=== PATIENT | female | born 1950 | race Caucasian/White ===

== ENCOUNTER 2018-02-11 10:30 | Outpatient (RCR) | payer MEDICARE, OTHER, SELFPAY ==
--- NOTE | 2017-12-06 09:33 | HP.PTEVAL ---
Patient's Visit Information LENA STOUT is a 67 year old F referred to Physical Therapy by ALECIA PERSON with a diagnosis of Knee Scope 10/06/17. Date of Evaluation: 12/06/17 Physical Therapist: Lisa Burch - Visit Plan Frequency: 2x /Week Duration: 4 Weeks Plan: Focus on LE and core s/s - Subjective Subjective: Surgery 10/06/17- knee scope- cleaned out the backers cyst and meniscus. MD seemed to think it would be a breeze but the patient doesn't think that. Pain is located on the lateral aspect of the knee and radiates to the foot. But the whole knee is also sore and tender. Has OA in her back and has had a hip replacement in the right side. Does feel the surgery helped- the back of the knee pain comes and goes. Describes the past dull and and achy or sharp/shooting. when she over works it- it gets worst. Worst:8/10 Agg: increased movement. Eases: getting off of it but if she sits to long it stiffens up. Tries to move it when she is sitting. 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 Gas pedal foot- when the seat hits the back of her leg is very painful. back pain: OA. Has not had therapy on her back- Hip replacement was 2013. No N/T in the toes. Sleep: not disturbed- gets up 2-3x a night to go the bathroom. PMHx: Acid reflux, thyroid. Meds: omeprazol, and thyroid medication. - Objective Posture: FH, RS. Gait: antalgic- hip drop, decreased stance on the right LE- reports she has walked like this since her hip replacement 4 years ago. Palpation: tender along lateral joint line, ITBand, fibular head and posterior knee. ROM: 0-120 degrees. Strength: Ankle: 5/5, Knee: 4+/5, Hip: 4/5 throughout Core: fair minus - Goals Goal 1:: Patient will be I with HEP and progression Goal Time Frame: 4-6 Weeks Goal 2:: Patient will maintain proper posture t/o tx session to demo increased core s/s. Goal Time Frame: 4-6 Weeks Goal 3:: Patient will ambulate >300 feet with a normalized gait pattern Goal Time Frame: 4-6 Weeks Goal 4:: Patient will demo 5/5 strength in LE Goal Time Frame: 4-6 Weeks - Rehabilitation Potential Physical Therapy Diagnosis: Patient presents with hypomobility- she has decreased strength and muscular endurance s/p knee scope. Rehabilitation Potential: Good - Anticipated Interventions Patient/Client Instruction: Educate patient on: Benefits of Fitness Program For the Purpose of:: To improve performance and independence with ADL's Therapeutic Exercise to Include: Strength training, Endurance training, Balance training, Agility training, Body mechanics, Postural training, Flexibilty training, Gait and locomotor training, Dynamic Lumbar Stabilization For the Purpose of:: To improve performance and independence with ADL's Thank you for the opportunity to evaluate your patient. For Medicare and Medicare HMO plans, please review the plan of care and approve it. It will need to be FAXED BACK to us at [phone] for Medicare purposes. Please let me know if there are questions or concerns regarding this plan of care. Physician Signature: Date:
--- NOTE | 2018-01-13 11:20 | HP.PTREVAL_ITS ---
JADE YUSUF KAITLYN It has been my pleasure to treat LENA STOUT over the last 9 visits for Knee Scope 10/06/17. Please see the progress note below for an update on the physical therapy plan of care! Subjective: Patient reports that she is a lot better- reports less pain and therapy has made enough of a difference she asked to continue therapy for another 4 weeks. The pain in the back is gone and the other is almost gone. She can go up recip but coming down is still one at time. Pain is located on the lateral aspect of the knee. Still gets stiff at night and she has to maneuver to get comfortable. Feels that she is 75% better. Just wants to get over that last hump. Objective/Function: Posture: FH, RS. Gait: mild deviation- decreased stance on the left LE- mild hip drop. Stairs: asc.desc 8' recip with 2 HR. hr/TR: able with pain tr. ROM: 5-115 degrees. Strength: 4+/5 throughout Plan Plan: Continue 2x a week for 4 weeks- Goals Goal 1:: Patient will be I with HEP and progression Goal Time Frame: 4-6 Weeks Goal Progress: Progressing Goal 2:: Patient will maintain proper posture t/o tx session to demo increased core s/s. Goal Time Frame: 4-6 Weeks Goal Progress: Progressing Goal 3:: Patient will ambulate >300 feet with a normalized gait pattern Goal Time Frame: 4-6 Weeks Goal Progress: Progressing Goal 4:: Patient will demo 5/5 strength in LE Goal Time Frame: 4-6 Weeks Goal Progress: Progressing Anticipated Interventions Patient/Client Instruction: Educate patient on: Benefits of Fitness Program For the Purpose of:: To improve performance and independence with ADL's Therapeutic Exercise to Include: Strength training, Endurance training, Balance training, Agility training, Body mechanics, Postural training, Flexibilty training, Gait and locomotor training, Dynamic Lumbar Stabilization For the Purpose of:: To improve performance and independence with ADL's Please do not hesitate to contact me at [phone] by phone or Fax: if you have questions or concerns regarding this new plan of care! Sincerely, Lisa Burch
--- NOTE | 2018-02-11 10:50 | HP.PTDCSUM ---
HP - PT D/C Summary It has been my pleasure to treat LENA STOUT under orders from ALECIA HANSEN, for the diagnosis of Knee Scope 10/06/17 for a total of 17 visit(s). Discharge Date: Please see the following information for a summary of their discharge status. - Subjective Subjective: Patient reports overall its better but still has a lot of soreness- comes and goes- worst 5/10. stopping on the bus break. - Pain Right Knee Pain Intensity (Out of 10): 3 - Overall Improvement % Improvement: 80 - Objective Objective/Function: Posture: FH, RS. Gait: mild deviation- decreased stance on the left LE- mild hip drop. Stairs: asc.desc 8' recip with 2 HR. hr/TR: able. ROM: 5-115 degrees. Strength: 4+/5 throughout - Goals Goal 1:: Patient will be I with HEP and progression Goal Progress: Goal Met Goal 2:: Patient will maintain proper posture t/o tx session to demo increased core s/s. Goal Progress: Progressing Goal 3:: Patient will ambulate >300 feet with a normalized gait pattern Goal Progress: Progressing Goal 4:: Patient will demo 5/5 strength in LE Goal Progress: Goal Met - Plan Plan: Discharge to I HEP. - D/C Information If there are questions or concerns regarding this patient's physical therapy, please feel free to call me at [phone]. Thank you for the referral of this patient. Sincerely, Lisa Burch
== END 2018-02-11 19:00 | disposition home or self-care (01) ==
LOC: PT 10:30
PROVIDERS: Family Provider Family Medicine; PCP Family Medicine
DX: Z98.890 Other specified postprocedural states (principal)
CPT/HCPCS: 97110; 97161; 97164; 97530

== ENCOUNTER 2019-05-10 09:15 | Outpatient (RCR) | payer MEDICARE, OTHER, SELFPAY ==
[2019-04-25 14:23] VITALS: BP 148/79; PULSE 74; RESP 16; TEMP 37; BMI 37.8
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
[2019-05-03 09:40] VITALS: BP 118/73; PULSE 76; RESP 18; TEMP 35.7; BMI 37.8
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
[2019-05-10 09:21] VITALS: BP 150/86; PULSE 60; RESP 18; TEMP 36.2; BMI 37.8
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
== END 2019-05-10 23:59 ==
LOC: WC 09:15
PROVIDERS: Family Provider Family Medicine; PCP Family Medicine; Referring Provider Family Medicine; Visit Provider Nurse Practitioner Family
DX: L02.31 Cutaneous abscess of buttock (principal); L98.411 Non-pressure chronic ulcer of buttock limited to breakdown of skin
CPT/HCPCS: 11042; 99213; G0463

== ENCOUNTER 2019-06-07 09:15 | Outpatient (RCR) | payer MEDICARE, OTHER, SELFPAY ==
[2019-05-11 01:14] VITALS: BP 150/86; PULSE 60; RESP 18; TEMP 36.2
[2019-05-24 08:15] VITALS: BP 147/77; PULSE 77; RESP 16; TEMP 20.8; BMI 37.8
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
[2019-05-31 09:15] VITALS: BP 141/71; PULSE 81; RESP 16; TEMP 35.5; BMI 37.8
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
[2019-06-07 09:18] VITALS: BP 164/95; PULSE 66; RESP 16; TEMP 35.5; BMI 37.8
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
== END 2019-06-10 23:59 ==
LOC: WC 09:15
PROVIDERS: Family Provider Family Medicine; PCP Family Medicine; Referring Provider Family Medicine; Visit Provider Nurse Practitioner Family
DX: L02.31 Cutaneous abscess of buttock (principal); L98.411 Non-pressure chronic ulcer of buttock limited to breakdown of skin
CPT/HCPCS: 11042; 99213; G0463

== ENCOUNTER 2020-12-29 22:43 | Emergency (ER) | payer MEDICARE, OTHER, SELFPAY ==
[2020-12-29 22:44] VITALS: PULSE 67; RESP 20; TEMP 36.3; O2SAT 97; BMI 41.9
[2020-12-29 22:49] VITALS: BP 169/86
--- NOTE | 2020-12-29 22:49 | EKG12_ITS ---
Test Reason : ABD PAIN Blood Pressure : / mmHG Vent. Rate : 057 BPM Atrial Rate : 057 BPM P-R Int : 144 ms QRS Dur : 078 ms QT Int : 424 ms P-R-T Axes : 047 000 021 degrees QTc Int : 412 ms Sinus bradycardia Moderate voltage criteria for LVH, may be normal variant Borderline ECG Confirmed by SHALONDA MORGAN, MONO ([id number]), editor sound SONJA STACY ([id number]) on 12/31/2020 9:04:20 AM Referred By: HEBER Confirmed By:MONO LIZ MD
--- NOTE | 2020-12-29 22:51 | ED.VIS.GEN ---
History of Present Illness Chief Complaint: Abd Pain Informant: Patient Onset: Today Context: Sudden Onset Timing: Continuous Current Severity: Moderate Maximum Severity: Moderate Narrative: The patient presents to the emergency department with left flank pain into her left lower quadrant. She states that symptoms began rather acutely tonight. She states that about 3 weeks ago, she did have similar symptoms but they were on the right side. This happened 2 days after her Covid shot. She states that she received her second Covid vaccination 3 days ago. She denies fever. She is mildly nauseated without vomiting. She denies dysuria. She denies chest pain or dyspnea. The patient states she is otherwise been in her normal state of health. She denies any rash or trauma. Prior similar symptoms: Yes Recent Illness/Hospitalization: No Past Medical History - Allergies and Home Meds Allergies/Adverse Reactions: Allergies acetaminophen [From Vicodin] Allergy (Verified 12/29/20 22:46) Other hydrocodone [From Vicodin] Allergy (Verified 12/29/20 22:46) Other tramadol Allergy (Verified 12/29/20 22:46) Other Primary Care Physician: Ebony Esqueda MD [STAFF PHYSICIAN] - As soon as possible Prior records reviewed: Yes Past Medical History: - - Hypothyroid Surgical History: noncontributory Smoking Status: Never smoker Review of Systems General: Denies: Chills, Fever, Sweats Eyes: Denies: Visual changes - bilaterally, Diplopia ENT: Denies: Rhinorrhea, Sore throat Cardiovascular: Denies: Chest pain, Palpitations Respiratory: Denies: Dyspnea, Cough, Dyspnea on exertion Gastrointestinal: Reports: Abdominal pain. Denies: Nausea, Vomiting, Diarrhea, Melena, Hematochezia Genitourinary: Denies: Dysuria, Hematuria, Frequency Musculoskeletal: Reports: Back pain. Denies: Extremity Pain Skin: Denies: Rash, Wounds Neurological: Denies: Headache, Weakness, Numbness Physical Exam Vital Signs/Narrative: Vital Signs Temp Pulse Resp BP Pulse Ox 12/29/20 22:49 169/86 H 12/29/20 22:44 97.3 F L 67 20 H 97 Inital Vital Signs reviewed: Yes General: Well nourished, Well developed, No Acute Distress Head: Normocephalic, Atraumatic Eyes: Perrl, EOMI ENT: Moist mucous membranes, No rhinorrhea Neck: Supple, Nontender Cardiovascular: Regular rate, Regular rhythm, No murmurs Respiratory: No distress, CTA bilaterally, Chest nontender Abdomen: Soft, Nontender, Nondistended, Normal bowel sounds Back: Nontender, Normal Inspection Extremities: Nontender, No edema Skin: Normal color, No rash Neurological: Alert, Oriented x3, Cranial nerves II-XII grossly intact, Normal Strength, Normal Sensation Psychological: Normal affect, Normal Mood Diagnostic/Tx/Re-eval Clinical Impression(s) from Imaging Studies Abdomen/Pelvis CT 12/29/20 23:34 IMPRESSION: Mild left hydronephrosis secondary to a 5 mm x 4 mm mid ureteral stone. Fluid-filled prominent loop of ileum right lower quadrant. Recommend continued follow-up. A closed loop obstruction is a consideration. Minimal colonic diverticulosis. Small right inguinal hernia containing fat. Hepatic and left renal cysts which can be correlated with ultrasound. Electronically Signed: Orville Tamez MD at 1:36 EDT , Service support , Abnormal Lab Results 12/29/20 12/29/20 12/29/20 22:55 22:55 23:10 WBC 7.9 RBC 4.12 L Hgb 13.0 Hct 39.3 MCV 95.4 MCH 31.6 MCHC 33.1 RDW Std Deviation 42.2 RDW Coeff of Caitlin 12.2 Plt Count 221 MPV 9.0 Immature Gran % (Auto) 0.800 Neut % (Auto) 55.4 Lymph % (Auto) 32.2 [place] % (Auto) 10.1 H Eos % (Auto) 1.1 Baso % (Auto) 0.4 Absolute Neuts (auto) 4.4 Absolute Lymphs (auto) 2.55 Nucleated RBC % 0 Sodium 140 Potassium 4.1 Chloride 107 Carbon Dioxide 26.0 Anion Gap 7 BUN 24 H Creatinine 1.16 H Estim Creat Clear Calc 36.71 Est GFR (MDRD) Af Amer 60 Est GFR (MDRD) Non-Af 49 L BUN/Creatinine Ratio 20.7 H Glucose 174 H Calcium 8.6 Total Bilirubin 0.30 AST 32 ALT 40 Alkaline Phosphatase 98 Total Protein 7.0 Albumin 3.7 Globulin 3.3 Albumin/Globulin Ratio 1.1 Lipase 181 Urine Color Yellow Urine Clarity Sl Cldy Urine pH 6.0 Ur Specific [place] 1.020 Urine Protein 30 H Urine Glucose (UA) Normal Urine Ketones 5 H Urine Occult Blood 250 H Urine Nitrite Negative Urine Bilirubin Negative Urine Urobilinogen 1 H Ur Leukocyte Esterase 500 H Urine RBC 5-10 SEEN Urine WBC 5-10 SEEN Ur Squamous Epith Cells 0-5 SEEN Urine Bacteria 0 SEEN Urine Mucus 0 SEEN - Medical Decision Making Patient presents with acute onset left-sided flank pain. She also had nausea. Her abdomen is soft and nontender. She denies any history of prior kidney stone. IV was established. Labs were obtained. Labs are relatively unremarkable and at the patient's baseline. Her urine does show some blood, but no evidence of infection. Patient underwent CT imaging. She does have a 5 x 4 mm stone in the mid ureter with some mild hydro-. After analgesics, her pain is controlled. At this point, I do feel that she is safe for outpatient follow-up with urology. She will be prescribed Zofran, Percocet, and Flomax. She has had no fever. Patient was counseled on concerning symptoms and reasons to return. She will be discharged home. Impression 1. Renal colic ED Disposition - Plan for ED Patient: Instructions: ED Kidney Stone w/ Colic Prescriptions: Tamsulosin HCl [Flomax] 0.4 mg PO DAILY #7 capsule Prescription Printed Oxycodone HCl/Acetaminophen [Percocet 5/325] 1 tablet PO Q6H PRN PRN 5 Days #20 tab PRN Reason: Pain/Inflammation Prescription Printed Ondansetron [Zofran Odt] 4 mg PO Q8H PRN PRN #10 tablet PRN Reason: Nausea Prescription Printed Referrals: Ebony Esqueda MD [STAFF PHYSICIAN] - As soon as possible
[2020-12-29] MEDS: 0.9% Normal Saline 1,000 ML 1000 ML IV (23:07)
[2020-12-29] MEDS: Morphine 4 MG/ML Syringe IV ×2 (23:07→23:54)
[2020-12-29] MEDS: Ondansetron 4 MG/2 ML Vial IV (23:07)
[2020-12-29 23:14] LABS: Bacteria 0 SEEN /hpf (None Seen); Mucous, Urine 0 SEEN /hpf (<or=2+)
[2020-12-29 23:16] LABS: Glucose, Dipstick Normal (Normal); Ketone-Dipstick 5 mg/dl (Negative); Leukocyte Esterase-Dipstick 500 /ul (Negative); Nitrite-Dipstick Negative (Negative); Occult Blood-Urine 250 /ul (Negative); Protein-Dipstick 30 mg/dl (Negative); Urine Bilirubin Dipstick Negative (Negative); Urine Urobilinogen 1 mg/dl (Normal)
[2020-12-29 23:21] LABS: Color, Urine Yellow (Yellow); Urine Clarity Sl Cldy (Clear)
[2020-12-29 23:22] LABS: ALB/GLOB Ratio 1.1 RATIO (0.9-2.4); AST(SGOT) 32 U/L (15-37); Alanine Aminotransfer ALT/SGPT 40 U/L (13-56); Albumin, Serum 3.7 g/dL (3.2-5.0); Alkaline Phosphatase 98 U/L (45-117); Anion Gap 7 (5-15); BUN 24 mg/dL (7-18); BUN/Creat Ratio 20.7 RATIO (10-20); Calcium,Total 8.6 mg/dL (8.5-10.1); Chloride 107 mmol/L (98-107); Creatinine, Serum 1.16 mg/dL (0.55-1.02); EST Glomerular Filtration Rate 49 mL/min (>60); Est Glom Filt Rate - Afr Amer 60 mL/min (>60); Estimated Creatinine Clearance 36.71 ml/min; Globulin 3.3 g/dL (2.2-4.2); Glucose 174 mg/dL (74-106); Lipase 181 U/L (73-393); Potassium 4.1 mmol/L (3.5-5.1); Sodium Level 140 mmol/L (136-145)
[2020-12-29 23:22] LABS: Red Blood Cells-Urine 5-10 SEEN /hpf (0-5); Squamous Epithelial Cells - UA 0-5 SEEN /hpf (5-10); White Blood Cells 5-10 SEEN /hpf (0-5)
[2020-12-29 23:23] LABS: Absolute Lymphocyte Count 2.55 X10^3/uL (0.83-4.51); Absolute Neutrophil Count 4.4 X10^3/uL (2.0-7.7); Basophil# 0.03 X10^3/uL; Basophil% 0.4 % (0-1); Eosinophil# 0.09 X10^3/uL; Eosinophils% 1.1 % (0-5); Hematocrit 39.3 % (37-47); Lymphocyte # 2.55 X10^3/ul (4.0); Lymphocyte % 32.2 % (19-41); Mean Corp Hgb Conc 33.1 g/dL (32-36); Mean Corpuscular Hgb 31.6 pg (27.0-32.0); Mean Corpuscular Volume 95.4 fL (81-99); Monocyte% 10.1 % (0-10); NRBC Flagged by Analyzer 0 % (0-5); Neutrophil # 4.39 X10^3/uL (2.7-7.7); Neutrophil % 55.4 % (47-70); Platelet Count 221 K/mm3 (150-450); RBC Distribution Width CV 12.2 % (11.6-14.6); RBC Distribution Width SD 42.2 fl (35.1-43.9); Red Blood Count 4.12 M/mm3 (4.2-5.4); White Blood Count 7.9 K/mm3 (4.4-11.0)
--- NOTE | 2020-12-29 23:34 | CT_ITS ---
STUDY: CT ABDOMEN AND PELVIS WITH AND WITHOUT CONTRAST REASON FOR EXAM: Female, 70 years old. Left lower quadrant pain. Left flank pain. RADIATION DOSAGE (If Supplied By Facility): CTDIvol = ( 18.02 ) mGy, DLP = ( 2777.90 ) mGycm TECHNIQUE: Axial CT images of the abdomen and pelvis were obtained with and without IV contrast administration. 100 mL Isovue 300 intravenous contrast. Multiplanar reconstructions. The protocol utilizes one or more of the following dose reduction techniques: automated exposure control, adjustment of mA and/or kV according to patient size, and/or use of iterative reconstruction technique. Individualized dose optimization techniques were used for this CT. COMPARISON: No relevant priors. FINDINGS: Lower Chest Lungs: Normal. Heart: Normal. Ribs: Normal. Organs / Endocrine Liver: Hepatic cysts the largest left lobe measuring 2.8 cm. Gallbladder / Biliary Tree: Normal. Pancreas: Normal. Spleen: Normal. Adrenal Glands: Normal. Peritoneum Fluid Collections: None. Free Air: No intra-abdominal free air. Intestinal Tract Stomach: Normal. Small Intestine: Fluid-filled loop of small bowel right lower quadrant measuring 2.3 cm in transverse dimension coronal image 66 series 601. Appendix: Normal. Colon: Scattered diverticulosis. Appendix absent compatible with history of appendectomy. Urinary System Kidney (right): Normal. Kidney (left): Mild left hydronephrosis secondary to a 5 mm x 4 mm mid ureteral stone located at approximately L3-L4. 0.9 cm cyst inferior pole left kidney. Ureter (right): Normal. Ureter (left): Normal. Bladder: Normal. Reproductive Organs The uterus grossly normal. No adnexal mass is seen. Vessels Aorta: Normal. Inferior Vena Cava: Normal. Iliac Arteries: Normal. Lymph Nodes Retroperitoneal: Normal. Iliac / Inguinal: 3.0 x 2.2 cm right inguinal hernia containing fat. Mesenteric: Non-visualized. Bones Vertebrae: Minimal anterolisthesis L3 on L4. Pelvis / Sacrum: Total right hip arthroplasty in normal alignment. Abdominal Wall / Inguinal Region Defect: None. Hernia: None. CT/CT Abd/Pelvis W/WO Contrast IMPRESSION: Mild left hydronephrosis secondary to a 5 mm x 4 mm mid ureteral stone. Fluid-filled prominent loop of ileum right lower quadrant. Recommend continued follow-up. A closed loop obstruction is a consideration. Minimal colonic diverticulosis. Small right inguinal hernia containing fat. Hepatic and left renal cysts which can be correlated with ultrasound. Electronically Signed: Orville Tamez MD at 1:36 EDT , Service support ,
[2020-12-30] MEDS: Morphine 4 MG/ML Syringe IV (02:01)
[2020-12-30 02:06] VITALS: BP 132/78; PULSE 87; RESP 18; O2SAT 99
== END 2020-12-30 02:06 | disposition home or self-care (01) ==
LOC: ED 23:27
PROVIDERS: Emergency Provider Emergency Medicine; PCP Family Medicine
DX: N13.2 Hydronephrosis with renal and ureteral calculous obstruction (principal); E03.9 Hypothyroidism, unspecified; Z79.899 Other long term (current) drug therapy
CPT/HCPCS: 74178; 80053; 81001; 83690; 85025; 93005; 96361; 96374; 96375; 96376; 99285; J7030; Q9967; A4216; J2405

== ENCOUNTER 2020-12-31 01:03 | Emergency (ER) | payer MEDICARE, OTHER, SELFPAY ==
[2020-12-31 01:05] VITALS: BP 163/92; PULSE 60; RESP 16; TEMP 36.6; O2SAT 96; BMI 43.1
--- NOTE | 2020-12-31 01:17 | CT_ITS ---
STUDY: CT ABDOMEN AND PELVIS WITH CONTRAST REASON FOR EXAM: Female, 70 years old. Pain RADIATION DOSAGE (If Supplied By Facility): CTDIvol = ( 22.79 ) mGy, DLP = ( 1155.91 ) mGycm TECHNIQUE: Transaxial images were obtained from the dome of the diaphragm to the symphysis pubis without oral contrast. No intravenous was administered. Sagittal and coronal images were reconstructed. Individualized dose optimization techniques were used for this CT. COMPARISON: 12/30/2020. FINDINGS: Mild posterior dependent atelectasis, remainder of the lung bases are clear. The visualized portions of the heart are within normal limits. Multiple low-attenuation structures within the liver, largest seen at the level of the left liver lobe measuring 3.0 x 2.1 cm and most compatible with liver cysts. Gallbladder reveals increased density within the lumen which may represent vicarious excretion of contrast from previous examination. Otherwise gallbladder and biliary system are unremarkable. Normal spleen. Normal pancreas. There is mild symmetric enlargement of the adrenal glands suggesting adrenal hyperplasia. Normal right kidney. Normal left kidney. There is a small hiatal hernia. There is foamy debris with mild distention of the distal small bowel loops, cannot exclude enteritis versus minimal obstruction. There are multiple colonic diverticula consistent with diverticulosis. Nonspecific distention of the right colon and transverse portion of the colon with increased fecal debris. The descending colon is incompletely distended otherwise unremarkable. The appendix is visualized and appears normal. There is diffuse atherosclerotic calcification of the abdominal aorta, without a demonstrated aneurysm. Normal inferior vena cava. Normal retroperitoneum. The urinary bladder is incompletely distended otherwise unremarkable. Anteverted uterus with atrophy. Small bilateral fat-containing inguinal hernias, slightly more prominent on the right compared to the left. Degenerative disease of the spine. Right-sided hip prosthesis with beam hardening artifact contributing to obscuration of surrounding structures. Degenerative disease of bilateral SI joints and left hip. CT/Abdomen/Pelvis without Cont IMPRESSION: Nonspecific distention of the right-sided colon with increased fecal debris. Cannot exclude superimposed enteritis versus no obstruction as described above. No signs of bowel obstruction. Low-attenuation liver lesions, likely cysts as described above. Remainder of abdominal viscera are unremarkable. Mild hiatal hernia. Electronically Signed: Vida Lacy MD at 2:27 EDT , Service support ,
--- NOTE | 2020-12-31 01:18 | ED.VIS.GEN ---
History of Present Illness Chief Complaint: Flank Pain Informant: Patient Narrative: Patient stated she was diagnosed with a 5 mm kidney stone on her left side yesterday. Her pain medicine is not working. She is having pain despite taking 1 Percocet every 6 hours. She also has some nausea. Took Zofran just prior to coming in. She has had no vomiting. Comes in for pain control again. Did have lab work done just yesterday. Passing gas normally. The pain is now in her left abdomen. It was in her left back yesterday. - Past Medical History (1) Abscess of right buttock Status: Chronic Comment: Post abscess ulcer with fat layer exposed ( Superior and Inferior ). 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 Past Medical History - Allergies and Home Meds Allergies/Adverse Reactions: Allergies acetaminophen [From Vicodin] Allergy (Verified 12/31/20 01:05) Other hydrocodone [From Vicodin] Allergy (Verified 12/31/20 01:05) Other tramadol Allergy (Verified 12/31/20 01:05) Other Primary Care Physician: Salinas Vásquez MD [Primary Care Provider] - Prior records reviewed: Yes Past Medical History: - - See problem list, kidney stone Surgical History: noncontributory Smoking Status: Never smoker Alcohol: None Drugs: None Review of Systems General: Denies: Chills, Fever, Sweats Eyes: Denies: Visual changes - bilaterally, Diplopia ENT: Denies: Rhinorrhea, Sore throat Cardiovascular: Denies: Chest pain, Palpitations Respiratory: Denies: Dyspnea, Cough, Dyspnea on exertion Gastrointestinal: Reports: Abdominal pain, Nausea. Denies: Vomiting, Diarrhea, Melena, Hematochezia Genitourinary: Denies: Dysuria, Hematuria, Frequency Musculoskeletal: Denies: Back pain, Extremity Pain Skin: Denies: Rash, Wounds Neurological: Denies: Headache, Weakness, Numbness Physical Exam Vital Signs/Narrative: Vital Signs Temp Pulse Resp BP Pulse Ox 12/31/20 01:05 98 F 60 16 163/92 H 96 General: Well nourished, Well developed, No Acute Distress Head: Normocephalic, Atraumatic Eyes: Perrl, EOMI ENT: Moist mucous membranes, No rhinorrhea Neck: Supple, Nontender Cardiovascular: Regular rate, Regular rhythm, No murmurs Respiratory: No distress, CTA bilaterally, Chest nontender Abdomen: Soft, Nontender, Nondistended, Normal bowel sounds Back: Nontender, Normal Inspection Extremities: Nontender, No edema Skin: Normal color, No rash Neurological: Alert, Oriented x3, Cranial nerves II-XII grossly intact, Normal Strength, Normal Sensation Psychological: Normal affect, Normal Mood Diagnostic/Tx/Re-eval - Medical Decision Making Patient given IV fluids morphine and Toradol. CT obtained of the abdomen pelvis with the kidney stone is not visualized at this time. Renals look normal. I did this as her CT yesterday showed a possible closed-loop obstruction in the right lower quadrant. I wanted to rule this out on repeat CAT scan. Repeat CAT scan does not show a bowel obstruction. There is fecal residue in the colon increased in amount. Otherwise nothing was seen on the CAT scan that is of emergent concern. On reevaluation her pain is resolved she is resting comfortably. I suspect she passed a kidney stone and she is having pain from the inside of her ureter as the stone moved through. She has Percocet at home that she will continue taking. She will follow-up as an outpatient. She will add MiraLAX to her diet. ED Disposition - Plan for ED Patient: Disposition: Home or Assisted Living Diagnosis: Renal colic on left side Instructions: ED Kidney Stone, Passed Referrals: Salinas Vásquez MD [Primary Care Provider] -
[2020-12-31] MEDS: HYDROmorphone 1 MG/ML Syringe IV (01:22)
[2020-12-31] MEDS: Ketorolac 15 MG/ML Vial IV (01:23)
[2020-12-31] MEDS: 0.9% Normal Saline 1,000 ML 125 ML IV (01:25)
[2020-12-31 02:56] VITALS: BP 126/58; PULSE 60; RESP 16; O2SAT 94
== END 2020-12-31 02:57 | disposition home or self-care (01) ==
PROVIDERS: Emergency Provider Emergency Medicine; PCP Family Medicine
DX: N23 Unspecified renal colic (principal)
CPT/HCPCS: 74176; J7030; A4216

== ENCOUNTER 2020-12-31 15:22 | Emergency (ER) | payer MEDICARE, OTHER, SELFPAY ==
[2020-12-31 01:05] VITALS: BMI 43.1
[2020-12-31 15:23] VITALS: BP 160/92; PULSE 68; RESP 22; TEMP 35.5; O2SAT 93; BMI 39.6
[2020-12-31] MEDS: Ondansetron 4 MG/2 ML Vial IV (16:21)
[2020-12-31] MEDS: Morphine 4 MG/ML Syringe IV (16:21)
--- NOTE | 2020-12-31 16:24 | ED.VIS.GI ---
History of Present Illness Chief Complaint: Flank Pain Informant: Patient - Abdominal Pain/Flank Pain Onset: Days - several days; restarted today around 5 hrs ago Context: Sudden Onset Timing: Continuous, Waxes and wanes Quality: Aching Location: Left Flank Current Severity: Severe Maximum Severity: Severe Worsened by: Nothing Relieved by: Nothing - tried Rx oxycodone - Nausea/Vomiting/Emesis GI Symptom: Nausea. Negative for: Vomiting - Diarrhea/Melena/Hematochezia GI Symptom: - - last BM several days ago, had 2, were unremarkable. Negative for: Diarrhea, Melena, Hematochezia Stool Quality: Negative for: Black, Maroon, [place]AP[place]O per rectum Associated Symptoms: Negative for: Dysuria, Frequency, Hematuria, Urgency Narrative: Patient presenting with unrelenting left flank/abdominal pain despite taking prescription oxycodone at home which has not phased the pain at all. She was seen here last night for the same pain, she had a CT with and without contrast that showed a left ureteral stone with associated hydronephrosis. 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 She states that she was discharged and then this morning around 1130, suddenly the pain returned, saying it is again the same pain. She denies having any urinary symptoms. Nausea no vomiting. No fevers or chills. No new symptoms, the exact same symptoms that she had with the other 2 visits which includes colicky left flank pain and nausea. She states prior to couple days ago, she has never had this pain nor kidney stones that she knows of. She has had a prior tubal ligectomy and appendectomy in the past, no other abdominal surgeries. She states that she has not had a bowel movement in a couple days, which is unusual for her, they were normal then but she attributes this to taking the prescribed narcotic pain medication for the pain. She states in the past when she had joint surgeries, she did have narcotic analgesics which resulted in constipation. She has not tried treating this yet. Past Medical History - Allergies and Home Meds Allergies/Adverse Reactions: Allergies acetaminophen [From Vicodin] Allergy (Verified 12/31/20 15:23) Other hydrocodone [From Vicodin] Allergy (Verified 12/31/20 15:23) Other tramadol Allergy (Verified 12/31/20 15:23) Other Primary Care Physician: Salinas Vásquez MD [Primary Care Provider] - Surgical History: noncontributory Smoking Status: Never smoker Review of Systems General: Denies: Chills, Fever, Sweats Eyes: Denies: Visual changes - bilaterally, Diplopia ENT: Denies: Rhinorrhea, Sore throat Cardiovascular: Denies: Chest pain, Palpitations Respiratory: Denies: Dyspnea, Cough, Dyspnea on exertion Gastrointestinal: Reports: Abdominal pain, Nausea, Constipation - Possibly, see HPI. Denies: Vomiting, Diarrhea, Melena, Hematochezia Genitourinary: Denies: Dysuria, Hematuria, Frequency Musculoskeletal: Reports: Back pain. Denies: Swelling, Extremity Pain Skin: Denies: Rash, Wounds Neurological: Denies: Headache, Weakness, Numbness Physical Exam Vital Signs/Narrative: Vital Signs Temp Pulse Resp BP Pulse Ox 12/31/20 15:23 96 F L 68 22 H 160/92 H 93 Inital Vital Signs reviewed: Yes General: Well nourished, Well developed, Obese, No Acute Distress Head: Normocephalic, Atraumatic Eyes: Perrl, EOMI ENT: Moist mucous membranes, No rhinorrhea Neck: Supple, Nontender Cardiovascular: Regular rate, Regular rhythm, No murmurs Respiratory: No distress, CTA bilaterally, Chest nontender Abdomen: Soft, Nondistended, Normal bowel sounds, Tender - diffusely along left abd/flank; normal-appearing. Negative for: Guarding, Rebound tenderness Back: Normal Inspection, CVA tenderness - left only Extremities: Nontender, No edema Skin: Normal color, No rash, No Trauma Neurological: Alert, Oriented x3, Cranial nerves II-XII grossly intact, Normal Strength, Normal Sensation Psychological: Normal affect - frustrated/angry, Normal Mood Diagnostic/Tx/Re-eval Laboratory Results 12/31/20 12/31/20 15:40 15:40 WBC 9.7 RBC 3.97 L Hgb 12.6 Hct 38.5 MCV 97.0 MCH 31.7 MCHC 32.7 RDW Std Deviation 43.2 RDW Coeff of Caitlin 12.1 Plt Count 214 MPV 9.4 Immature Gran % (Auto) 0.400 Neut % (Auto) 66.8 Lymph % (Auto) 22.8 [place] % (Auto) 8.9 Eos % (Auto) 0.7 Baso % (Auto) 0.4 Absolute Neuts (auto) 6.5 Absolute Lymphs (auto) 2.20 Nucleated RBC % 0 Sodium 141 Potassium 3.6 Chloride 106 Carbon Dioxide 29.0 Anion Gap 6 BUN 21 H Creatinine 0.84 Estim Creat Clear Calc 50.70 Est GFR (MDRD) Af Amer 87 Est GFR (MDRD) Non-Af 72 BUN/Creatinine Ratio 25.1 H Glucose 106 Calcium 8.6 - Medical Decision Making I briefly reviewed the 2 charts from the patient's other 2 visits in the last 24 hours. Based on these results and lack of leukocytosis, I do not think the patient requires repeat imaging. She had an initial urinalysis that showed significant leukocyte esterace, but in my opinion since there was no pyuria, was correctly interpreted as NO INFECTION. There was blood present as well, consistent with a stone, and her symptoms and exam were also consistent with the findings on the CT concerning the left kidney and ureter. At this point I believe the differential includes early pyelonephritis with renal colic as a result, or functional GI-related pain which could be multiple etiologies, the easiest to solve would be related to constipation from the narcotics she has taken. However many functional GI-related causes are difficult to diagnose in the emergency department since the often do not show abnormalities on CT scanning. I explained all this to the patient and she seems understand and is agreeable undergoing empiric treatment for constipation to see if that helps relieve her pain. Therefore, after offering a soapsuds enema, she agreed and nursing administered. She had a very small amount of stool come out, and on reexamination she is pain-free. She was given morphine earlier than that, but she said it did not help and wanted Dilaudid, we held onto that until after the enema, she is unsure if the enema/bowel movement made her pain-free or not. I tried to obtain a repeat urinalysis, and even after being in the ER for multiple hours she was only able to urinate a very small amount, and did not want to stay for repeat attempt and wanted to leave. We agreed to discharge her with a prescription for dicyclomine to use as needed, perhaps this is colonic pain related to constipation which is difficult to prove as I discussed with the patient unless she has a good bowel movement and the pain resolves. I encouraged her to avoid using the oxycodone at all for this for now, and if she needs to return to the ER she is welcome to do so. For now she was also given magnesium citrate to go home with that she opted to take at home instead of drinking it here. ED Disposition - Plan for ED Patient: Disposition: Home or Assisted Living Diagnosis: Acute left flank pain, Constipation due to opioid therapy Instructions: ED Flank Pain, Uncertain Cause, ED Constipation (Adult) Prescriptions: Dicyclomine HCl [Bentyl] 20 mg PO Q6H PRN #14 capsule PRN Reason: abdominal pain Prescription Printed Referrals: Salinas Vásquez MD [Primary Care Provider] - 1-2 Days if not improving Additional Instructions: Drink half of the magnesium citrate bottle along with plenty of fluids. If you do not have a good bowel movement in 24 hours, repeat. Make sure you are drinking plenty of fluids in between.
[2020-12-31 16:40] LABS: Absolute Neutrophil Count 6.5 X10^3/uL (2.0-7.7); Basophil# 0.04 X10^3/uL; Basophil% 0.4 % (0-1); Eosinophil# 0.07 X10^3/uL; Eosinophils% 0.7 % (0-5); Hematocrit 38.5 % (37-47); Hemoglobin 12.6 g/dL (12.0-15.0); Lymphocyte % 22.8 % (19-41); Mean Corp Hgb Conc 32.7 g/dL (32-36); Mean Corpuscular Hgb 31.7 pg (27.0-32.0); Mean Platelet Vol. 9.4 fl (6.2-12.0); Monocyte# 0.86 X10^3/uL; Monocyte% 8.9 % (0-10); NRBC Flagged by Analyzer 0 % (0-5); Neutrophil # 6.46 X10^3/uL (2.7-7.7); Neutrophil % 66.8 % (47-70); Platelet Count 214 K/mm3 (150-450); RBC Distribution Width CV 12.1 % (11.6-14.6); RBC Distribution Width SD 43.2 fl (35.1-43.9); Red Blood Count 3.97 M/mm3 (4.2-5.4); White Blood Count 9.7 K/mm3 (4.4-11.0)
[2020-12-31] MEDS: Ketorolac 15 MG/ML Vial IV (16:48)
[2020-12-31 16:55] LABS: Anion Gap 6 (5-15); BUN 21 mg/dL (7-18); BUN/Creat Ratio 25.1 RATIO (10-20); Calcium,Total 8.6 mg/dL (8.5-10.1); Chloride 106 mmol/L (98-107); Creatinine, Serum 0.84 mg/dL (0.55-1.02); EST Glomerular Filtration Rate 72 mL/min (>60); Est Glom Filt Rate - Afr Amer 87 mL/min (>60); Glucose 106 mg/dL (74-106); Potassium 3.6 mmol/L (3.5-5.1); Sodium Level 141 mmol/L (136-145)
[2020-12-31 19:08] VITALS: BP 151/61; PULSE 72; RESP 16; O2SAT 97
--- NOTE | 2020-12-31 19:32 | ED.RN ---
Patient went to bathroom and states she had already gone because she did not know we needed a sample, before this nurse arrived and was not able to go more than a drop. Patient states she does not believe it is necessary and requests I talk to the doctor about the test. Dr Cristina is aware.
[2020-12-31 19:34] VITALS: PULSE 64; RESP 17; TEMP 36.7
[2020-12-31] MEDS: Magnesium Citrate 300 ML 150 ML PO (19:50)
== END 2020-12-31 19:55 | disposition home or self-care (01) ==
PROVIDERS: Emergency Provider Emergency Medicine; PCP Family Medicine
DX: K59.03 Drug induced constipation (principal); T40.2X5A Adverse effect of other opioids, initial encounter; Y92.9 Unspecified place or not applicable; E66.9 Obesity, unspecified; Z87.442 Personal history of urinary calculi; N23 Unspecified renal colic
CPT/HCPCS: 74176; 80048; 85025; 96361; 96374; 96375; 99284; 99285; J7030; A4216; J2405

== ENCOUNTER → 2021-02-10 17:25 | Outpatient (CLI) | payer MEDICARE, OTHER, SELFPAY ==
--- NOTE | 2021-02-10 17:28 | CT_ITS ---
EXAM: CT ABDOMEN AND PELVIS WITHOUT INTRAVENOUS CONTRAST : 1950 CLINICAL INDICATION: KIDNEY STONE TECHNIQUE: Helically acquired images were obtained of the abdomen and pelvis without intravenous contrast. This CT exam was performed using one or more of the following dose reduction techniques: automated exposure control, adjustment of the mA and/or kV according to patient size, and/or use of iterative reconstruction technique. This report was created using [employer] report generation technology. COMPARISON: 12/31/2020 FINDINGS: LOWER THORAX: Unremarkable. Lung bases are clear. No cardiomegaly. No significant pericardial effusion. ABDOMEN: LIVER: Unremarkable. Homogeneous. GALLBLADDER AND BILE DUCTS: Unremarkable. No calcified gallstones. No gallbladder distention or wall edema. No intra- or extrahepatic biliary ductal dilation. PANCREAS: Unremarkable. No focal cystic mass. SPLEEN: Unremarkable. Normal size without focal cystic or solid mass. ADRENALS: Unremarkable. No nodules. KIDNEYS AND URETERS: Multiple low-density masses are seen within the kidney compatible with cysts which are stable from the reference exam. No follow-up imaging is necessary. No hydronephrosis. STOMACH AND BOWEL: Unremarkable. No stomach or bowel distention. No focal inflammatory change. PELVIS: APPENDIX: No evidence of acute appendicitis. BLADDER: Unremarkable. REPRODUCTIVE: Unremarkable as visualized. No mass. ABDOMEN and PELVIS: INTRAPERITONEAL SPACE: Unremarkable. No ascites or other fluid collection. No free air. BONES/JOINTS: There is beam hardening artifact in the pelvis due to a right hip prosthesis. No suspicious lytic or blastic abnormality. SOFT TISSUES: Unremarkable. No discrete abdominal or pelvic wall hernia. VASCULATURE: Unremarkable. Abdominal aorta is non-dilated. LYMPH NODES: Unremarkable. No enlarged lymph nodes. CT/Abdomen/Pelvis without Cont IMPRESSION: No acute findings in the abdomen or pelvis. Individualized dose optimization techniques were used for this CT. at 0316 Reported and signed by: James Cox MD Electronically Signed: James Cox MD at 3:14 EDT Tel , Service support ,
== END ==
PROVIDERS: PCP Family Medicine; Referring Provider Urology; Visit Provider Urology
DX: N20.0 Calculus of kidney (principal)
CPT/HCPCS: 74176

== ENCOUNTER 2022-02-15 10:14 | Emergency (ER) | payer MEDICARE, OTHER, SELFPAY ==
[2022-02-15 10:14] VITALS: BP 191/81; PULSE 61; RESP 18; TEMP 36.4; O2SAT 96; BMI 37.5
--- NOTE | 2022-02-15 10:24 | CT_ITS ---
INDICATION: Kidney Stone EXAMINATION: CT ABDOMEN AND PELVIS WITHOUT CONTRAST - CT Abdomen And Pelvis W/O Contrast Injection TECHNIQUE: Helically acquired images were obtained of the abdomen and pelvis without oral or IV contrast. A radiation dose optimization technique was used for this scan. IV Contrast dosage and agent: None Oral contrast: None. RADIATION DOSAGE (If Supplied By Facility): CTDIvol = ( 22.59 ) mGy, DLP = ( 1066.62 ) mGycm COMPARISON: 02/10/2021 FINDINGS: LOWER CHEST: Minimal interstitial prominence at the lung bases. No consolidation infiltrate or effusion identified No cardiomegaly or pericardial effusion. LIVER: Liver has normal configuration, multiple low-density lesions are present consistent with cysts without significant interval change, largest in the LEFT hepatic lobe with maximal axial dimension of approximately 3.5 x 2.6 cm. No evidence of ductal dilatation. GALLBLADDER AND BILIARY TREE: No calcified gallstones. No gallbladder distension or wall edema. No intra- or extrahepatic biliary ductal dilation. PANCREAS: No focal cystic or solid mass. SPLEEN: Normal size without focal cystic or solid mass. ADRENAL GLANDS: No nodules. KIDNEYS AND URETERS: Kidneys have normal configuration. There does appear to be mild hydronephrosis and minimal hydroureter on the RIGHT however no intraureteral stones identified. No perinephric fluid collections. PERITONEUM: No ascites or free air. No other fluid collection. BOWEL: No evidence of acute appendicitis. No stomach or bowel distension. No focal inflammatory change. No evidence diverticulitis. LYMPH NODES: No enlarged mesenteric or retroperitoneal lymph nodes. VESSELS: Moderate vascular calcifications throughout the aorta without aneurysmal dilatation URINARY BLADDER: Unremarkable. REPRODUCTIVE ORGANS: No pelvic masses. ABDOMINAL WALL: No discrete abdominal or pelvic wall hernia. BONES: Diffuse lumbar spondylosis is noted. There is grade 1 anterolisthesis of L3 on L4. No fracture or destructive bony process. RIGHT hip arthroplasty is present. Diffuse lumbar facet arthrosis is present. CT/Abdomen/Pelvis without Cont IMPRESSION: 1. No evidence or renal calcifications. There is mild hydronephrosis and hydroureter on the RIGHT however no obstructing calcifications noted. No calcifications noted in the bladder. 2. No masses bowel obstruction abscess free fluid or free air. No evidence of diverticulitis or appendicitis. 3. Stable appearance of hepatic cyst Electronically Signed: Александр Daniels MD at 11:49 EDT ,
--- NOTE | 2022-02-15 10:27 | EDS_ITS ---
HPI History of Present Illness Chief Complaint: Back Informant: patient Narrative Narrative: 71-year-old female states that today she was getting out of the shower/tub when she developed severe pain in the left low back. It is described as nonradiating. She describes it as severe and worse with movement and touch. She denies any urinary symptoms but believes she may have a kidney stone she had 1 last year. No fevers. She felt fine getting into the shower/tub. PFSH PFSH Medical History (Updated 02/15/22 @ 11:[address] Jomar Rodriguez, DO) Abscess, groin Acid reflux DVT (deep venous thrombosis) Hypothyroid Home Medications Vinegar 1 cap PO DAILY 04/25/19 [History Last Taken Unknown] ascorbate calcium-bioflavonoid 1,000 mg PO DAILY 04/25/19 [History Last Taken Unknown] biotin 1,000 mcg PO DAILY 04/25/19 [History Last Taken Unknown] calcium carbonate-vitamin D3 1 ea PO BID 04/25/19 [History Last Taken Unknown] cinnamon bark 500 mg PO DAILY 04/25/19 [History Last Taken Unknown] cyanocobalamin (vitamin B-12) 500 mcg PO DAILY@0800 04/25/19 [History Last Taken Unknown] levothyroxine 50 mcg PO DAILY 04/25/19 [History Last Taken Unknown] fpvawbdp-ucx-BU-lycopen-lutein 1 ea PO DAILY 04/25/19 [History Last Taken Unknown] omega-3 fatty acids-fish oil 1 ea PO BID 04/25/19 [History Last Taken Unknown] omeprazole 40 mg PO DAILY 04/25/19 [History Last Taken Unknown] pyridoxine (vitamin B6) 50 mg PO DAILY 04/25/19 [History Last Taken Unknown] cyclobenzaprine 10 mg PO TID PRN #15 tablet 02/15/22 [Rx Last Taken Unknown] hydrocodone-acetaminophen 1 tab PO Q6H PRN PRN 3 Days #12 tablet 02/15/22 [Rx Last Taken Unknown] Allergy/AdvReac Type Severity Reaction Status Date / Time acetaminophen [From Vicodin] Allergy Other Verified 02/15/22 10:14 hydrocodone [From Vicodin] Allergy Other Verified 02/15/22 10:14 tramadol Allergy Other Verified 02/15/22 10:14 Surgical History (Updated 02/15/22 @ 10:29 by Erick Cho RN) History of ear, nose, and throat (ENT) surgery History of right hip replacement History of right knee surgery Hx of appendectomy Hx of tubal ligation Social History (Updated 02/15/22 @ 10:[address] Jomar Rodriguez, DO) current gender identity: female Smoking Status: Never smoker substance use type: does not use ROS ROS ED Constitutional Constitutional ED: Denies chills or weight loss Eyes Eyes: Denies change in vision or diplopia ENT ENT ED: Denies ear pain, rhinorrhea or sore throat Cardiovascular Cardiovascular: Denies chest pain, orthopnea, palpitations or racing heartbeat Respiratory/Chest Respiratory/Chest: Denies cough, dyspnea or orthopnea Gastrointestinal Gastrointestinal: Denies abdominal pain, diarrhea, nausea or vomiting Genitourinary Genitourinary ED: Denies dysuria, hematuria or urinary frequency Musculoskeletal Musculoskeletal: Reports back pain; Denies arthralgias or myalgias Integumentary Denies abscess or rash Neurologic Neurologic: Denies headache(s) or weakness Psychiatric Psychiatric: Denies anxiety, depression, suicidal ideation or suicidal thoughts Endocrine Endocrinology: Denies polydipsia, polyphagia or polyuria Allergic/Immunologic Allergic/Immunologic ED: Denies mouth swelling, tongue swelling or urticaria EXAM Physical Exam Const Vital Signs: 02/15/22 10:14 Temperature 97.6 F L Temperature Source Temporal Pulse Rate 61 Respiratory Rate 18 Blood Pressure 191/81 H Blood Pressure Mean 117 Pulse Ox 96 Oxygen Delivery Method Room Air Positive well nourished, well developed and obese General Appearance ED: well developed Nutritional Appearance: obese HEENT Reports normocephalic, head/scalp atraumatic, TM's clear and moist mucous membranes Negative for trauma Tympanic Membrane ED: Yes TM's clear Eyes PERRL and EOMs intact bilaterally Neck no lymphadenopathy, supple and no JVD Resp normal respiratory effort and clear to auscultation bilaterally Cardio regular rate, regular rhythm and no murmurs GI normal to inspection, nondistended, normoactive bowel sounds and non-tender Palpation: soft Back/Spine no CVA tenderness and normal ROM Back/Spine Narrative: Focal tenderness to palpation in the left lumbar paraspinal musculature about L2 through L4. I do not appreciate any tissue texture changes to suggest underlying infection. Extremity normal to inspection General Extremety ED: Negative for edema General Extremity: Negative for edema Neuro oriented x3 and CN's II-XII intact bilaterally Sensorium / Orientation: alert Motor Exam: strength 5/5 throughout Psych mental status grossly normal Mood & Affect: Negative for depressed or tearful Skin no rashes or lesions noted and no wounds MDM MDM MDM Narrative Medical decision making narrative: Patient received morphine and Toradol. Urinalysis is normal. CT of the abdomen pelvis does not demonstrate any kidney stone or pathology to explain her low back pain. I feel that this is most likely musculoskeletal. Will treat with Flexeril and pain medicine. Recommend continued heat following up with primary care Lab Data Attestation: I reviewed the patient's lab results. Labs: Laboratory Results - last 24 hr 02/15/22 10:32 Urine Color Yellow Urine Clarity Clear Urine pH 7.0 Ur Specific [place] 1.005 Urine Protein Negative Urine Glucose (UA) Normal Urine Ketones Negative Urine Occult Blood Negative Urine Nitrite Negative Urine Bilirubin Negative Urine Urobilinogen Normal Ur Leukocyte Esterase Negative Urine RBC 0 SEEN Urine WBC 0 SEEN Ur Squamous Epith Cells 0 SEEN Urine Bacteria 0 SEEN Urine Mucus 0 SEEN Radiography Diagnostic Testing: Clinical Impression(s) from Imaging Studies Abdomen/Pelvis CT 02/15/22 10:24 IMPRESSION: 1. No evidence or renal calcifications. There is mild hydronephrosis and hydroureter on the RIGHT however no obstructing calcifications noted. No calcifications noted in the bladder. 2. No masses bowel obstruction abscess free fluid or free air. No evidence of diverticulitis or appendicitis. 3. Stable appearance of hepatic cyst Electronically Signed: Александр Daniels MD at 11:49 EDT , Discharge Plan Triage Chief Complaint: Back ED Provider: Jomar Rodriguez Dx/Rx/DC Orders Clinical Impression: Acute lumbar back pain Instructions: ED Back Pain (Acute or Chronic) Prescriptions: New cyclobenzaprine [cyclobenzaprine] 10 MG tablet 10 mg PO TID PRN (Reason: Muscle Spasm) Qty: 15 RF: 0 hydrocodone-acetaminophen [hydrocodone-acetaminophen] 1 TABLET tablet 1 tab PO Q6H PRN PRN (Reason: Pain) 3 Days Qty: 12 RF: 0 No Action calcium carbonate-vitamin D3 1 EACH tablet 1 ea PO BID RF: 0 omeprazole 40 MG capsule,delayed release(DR/EC) 40 mg PO DAILY RF: 0 cyanocobalamin (vitamin B-12) 500 MCG tablet 500 mcg PO DAILY@0800 RF: 0 levothyroxine 50 MCG tablet 50 mcg PO DAILY RF: 0 pyridoxine (vitamin B6) 50 MG tablet 50 mg PO DAILY RF: 0 ascorbate calcium-bioflavonoid 1 EACH tablet 1,000 mg PO DAILY RF: 0 cinnamon bark 500 MG capsule 500 mg PO DAILY RF: 0 kfoycabf-udz-DD-lycopen-lutein 1 EACH tablet 1 ea PO DAILY RF: 0 omega-3 fatty acids-fish oil 1 EACH capsule 1 ea PO BID RF: 0 biotin 1,000 MCG tablet,chewable 1,000 mcg PO DAILY RF: 0 Vinegar 1 cap PO DAILY RF: 0 Primary Care Provider: Salinas Vásquez Referrals: Salinas Vásquez MD [Primary Care Provider] - As Needed Disposition Disposition: Home, Self Care
[2022-02-15 10:35] LABS: Bacteria 0 SEEN /hpf (None Seen); Mucous, Urine 0 SEEN /hpf (<or=2+); Red Blood Cells-Urine 0 SEEN /hpf (0-5); Squamous Epithelial Cells - UA 0 SEEN /hpf (5-10); White Blood Cells 0 SEEN /hpf (0-5)
[2022-02-15] MEDS: Ketorolac 15 MG/ML Vial IV (10:38)
[2022-02-15] MEDS: Morphine 4 MG/ML Syringe IV (10:39)
[2022-02-15 10:43] LABS: Color, Urine Yellow (Yellow); Glucose, Dipstick Normal (Normal); Ketone-Dipstick Negative (Negative); Leukocyte Esterase-Dipstick Negative /ul (Negative); Nitrite-Dipstick Negative (Negative); Occult Blood-Urine Negative /ul (Negative); Protein-Dipstick Negative (Negative); Specific Gravity, Urine 1.005 (1.002-1.030); Urine Bilirubin Dipstick Negative (Negative); Urine Clarity Clear (Clear); Urine Urobilinogen Normal (Normal)
== END 2022-02-15 12:12 | disposition home or self-care (01) ==
PROVIDERS: Emergency Provider Emergency Medicine; PCP Family Medicine; Visit Provider Emergency Medicine
DX: M54.50 Low back pain, unspecified (principal); K21.9 Gastro-esophageal reflux disease without esophagitis; Z86.718 Personal history of other venous thrombosis and embolism; E03.9 Hypothyroidism, unspecified; Z79.899 Other long term (current) drug therapy; E66.9 Obesity, unspecified; Z68.37 Body mass index [BMI] 37.0-37.9, adult
CPT/HCPCS: 74176; 81001; 96374; 96375; 99283; A4216

== ENCOUNTER 2022-05-14 13:30 | Outpatient (RCR) | payer MEDICARE, OTHER, SELFPAY ==
--- NOTE | 2022-04-22 07:12 | HP.PTEVAL ---
Patient's Visit Information LENA STOUT is a 72 year old F referred to Physical Therapy by JACINDA MOBLEY with a diagnosis of R ankle peroneal, post tib, and achilles tendonitis. Date of Evaluation: 04/16/22 Physical Therapist: Marco Antonio Mahoney, PT, ATC - Visit Plan Frequency: 2x /Week Duration: 4-6 Weeks Plan: R ankle stretching, strengthening, balance and proprio, nustep, and HEP - Subjective Pt reports her R ankle has been sore for 6-8 weeks. Pt reports she went to her PCP and received an MRI which revealed significant tendonitis throughout her R ankle including the peroneal, post tib, and Achilles tendons. Pt reports she was referred to ortho and was placed in a brace 2 days ago. Pt reports wearing the brace does help to control the pain some. Pt denies PMHx of R ankle pain prior to this instance. 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 Pt reports she lives in a house with 3 floors to it, which requires her to negotiate stairs at time. Pt reports she is able to negotiate the stairs but must start off one step at a time. No sleep difficulty at this time secondary to pain. 0/10 pain while sitting here at rest, 9/10 at worst (it throbs a lot the longer I am on my feet. - Pain R ankle Pain Intensity (Out of 10): 0 Pain Intensity Range: 9 - Objective Palpation: Pt is very sore along the distribution of the post tib tendon. No obvious deformity noted at thsi time. Neuro: B LE sensation is WNL to light touch. B patellar reflex= 2/3. ROM: L ankle DF= 5, PF= 55 degrees; R ankle DF= -5, PF= 55 degrees. MMT: L ankle DF= 24, PF= 37, R ankle DF= 14, PF= 20 #F - Balance/Special Test Scores Lower Extremity Functional Score: 40 - Goals Goal 1:: Decrease R ankle pain x 50% to aid with sleep Goal Time Frame: 4-6 Weeks Goal 2:: Increase R ankle DF ROM x 10 degrees to aid with ambulation Goal Time Frame: 4-6 Weeks Goal 3:: Increase R ankle strength x 5-10#F to aid with stair negotiation Goal Time Frame: 4-6 Weeks Goal 4:: I with HEP Goal Time Frame: 4-6 Weeks - Rehabilitation Potential Physical Therapy Diagnosis: Pt has R ankle pain, weakness, and limited ROM secondary to R ankle tendonitis Rehabilitation Potential: Good - Anticipated Interventions Patient/Client Instruction: Educate patient on: Condition, Plan of Care For the Purpose of:: To improve self management Therapeutic Exercise to Include: Strength training, Endurance training, Balance training, Flexibilty training, Passive ROM, Active ROM For the Purpose of:: To decrease pain, To increase ROM, To improve muscle performance and motor function IF ES: Yes Cryotherapy (ice pack, ice massage): Yes Ultrasound (thermal/non thermal): Yes For the Purpose of:: To decrease pain Thank you for the opportunity to evaluate your patient. For Medicare and Medicare HMO plans, please review the plan of care and approve it. It will need to be FAXED BACK to us at [phone] for Medicare purposes. For Medicare only, by signing this I certify the plan of care. Please let me know if there are questions or concerns regarding this plan of care. Physician Signature: Date:
--- NOTE | 2022-05-14 13:59 | HP.PTDCSUM ---
It has been my pleasure to treat LENA STOUT referred by JACINDA MOBLEY, with the diagnosis of R ankle peroneal, post tib, and achilles tendonitis for a total of 9 visit(s). Discharge Date: Please see the following information for a summary of their discharge status. Subjective: Pt reports she is ready for discharge. No more pain R ankle Pain Intensity (Out of 10): 0 % Improvement: 100 Objective/Function: R ankle pain 0/10. R ankle MMT: DF= 38, PF= 25 #F. R ankle DF ROM= 3. Pt is I with HEP. Rx goals achieved Goal 1:: Decrease R ankle pain x 50% to aid with sleep Goal Progress: Goal Met Goal 2:: Increase R ankle DF ROM x 10 degrees to aid with ambulation Goal 3:: Increase R ankle strength x 5-10#F to aid with stair negotiation Goal Progress: Goal Met Goal 4:: I with HEP Goal Progress: Goal Met Plan: Discharge If there are questions or concerns regarding this patient's physical therapy, please feel free to call me at [phone]. Thank you for the referral of this patient. Sincerely, Marco Antonio Mahoney, PT, ATC Balance/Gait/Functional tests - Balance/Special Test Scores Lower Extremity Functional Score: 65
== END 2022-05-14 14:23 | disposition home or self-care (01) ==
LOC: PT 13:30
PROVIDERS: PCP Family Medicine
DX: M76.821 Posterior tibial tendinitis, right leg (principal); M76.829 Posterior tibial tendinitis, unspecified leg; M76.71 Peroneal tendinitis, right leg
CPT/HCPCS: 97110; 97161; 97164

== ENCOUNTER → 2023-12-02 | Outpatient (CLI) | payer MEDICARE, OTHER, SELFPAY ==
--- NOTE | 2023-12-02 16:47 | BI_ITS ---
MAMMOGRAPHY - BILATERAL SCREENING REASON FOR EXAM: Female, 73 years old. Routine annual screening examination. PERTINENT HISTORY: Non-contributory. TECHNIQUE: Digital bilateral breast fatoumata (3D mammographic acquisition) in the CC and MLO projections. 2-D mediolateral oblique (MLO) and craniocaudad (CC) views of both breasts were obtained. CAD: Full Field Digital Mammography with Computer Added Detection was performed. COMPARISON: Comparison is made with prior outside examination dated December 01, 2022. FINDINGS: Breast Composition: The breasts are almost entirely fatty. There are no dominant masses or suspicious calcifications. Stable benign-appearing left axillary lymph nodes. No other significant abnormalities are identified. There has been no significant change since the prior study. BI/SCRN MAMM (CAD)W/FATOUMATA BILAT IMPRESSION: Stable bilateral screening mammogram. Yearly follow-up mammogram recommended. (A) ASSESSMENT CATEGORY: BIRADS Category 2: Benign. A letter regarding these results will be sent to the patient by the facility within 30 days. Approximately 10% of breast cancers are not detected by mammography. A normal mammogram should not delay biopsy of a clinically suspicious abnormality. [id number] Electronically Signed: Cristi Vinson MD at 8:32 EST ,
--- OUTSIDE RECORDS SUMMARY | 2023-12-03 08:05 | XMS RPT_ITS | CCD ---
Author Name Unknown Address [address] [place] [address] Organization [facility] Care Team Providers Care Porcelain Turner Name Role Phone Radha Mejia Unavailable Unavailable JUJU BECKHAM MD Primary Care Physician No, Physician Primary Care Provider Unavailabl e SYSTEM, PROVIDER NOT IN Attending UnavailJABARI Mendez Referring UnavailHAZEL England Attending Unavailab JAZMINE Taylor Admitting Unavailable NO, PHYSICIAN Primary Care Unavailable NO, PHYSICIAN Primary Care Unavailable JABARI COREA Attending UnavailJUJU Hamilton MD Attending Unavailable JUJU BECKHAM MD Primary Care Unavailable JUJU BECKHAM MD Attending Unavailable JUJU BECKHAM MD Primary Care Unavailable Allergies Allergy Classification Reported Allergen(s) Allergy Type Date of Onset Reaction(s) Facility (7 sources) Acetaminophen / HYDROcodone; Translations: [acetaminophen-hy drocodone] Drug Allergy 9 Nausea (finding), GI Intolerance, Nausea Only, Nausea And Vomiting [facility] (9 sources) traMADol; Translations: [tramadol] Drug Allergy 2 Nausea (finding), GI Intolerance [facility] (2 sources) Acetaminophen / HYDROcodone; Translations: [HYDROCODONE-ACET AMINOPHEN] Drug Allergy 9 [facility] Rep[facility] Medications Current Medications Medication Drug Class(es) Dates Sig (Normalized) Sig (Original) acetaminophen 325 mg / HYDROcodone bitartrate 5 mg oral tablet (2 sources) Opioid Agonist Start: 02-18-2022 acetaminophen-hydro codone 325 mg-5 mg oral tablet 0 Refill(s), 94.8 Start Date: 02/18/22 Status: Ordered ascorbate calcium-bioflavonoid 500-200 mg Tab (2 sources) Start: 04-25-2019 ascorbate calcium-bioflavonoi d 500-200 mg Tab 2 Unspecified . 0 04/25/2019 Active Completed/Discontinued Medications Medication Drug Class(es) Dates Sig (Normalized) Sig (Original) aluminum hydroxide 40 mg/ml / magnesium hydroxide 40 mg/ml / simethicone 4 mg/ml oral suspension (1 source) Start: 01-25-2022 End: 01-25-2022 take 30 mL by mouth every four hours as needed aluminum-magnesium hydroxide-simethic one (MAALOX PLUS) 200-200-20 mg/5 mL suspension 30 mL ascorbate calcium-bioflavonoi d 1,000-200 mg Tab (1 source) Start: 04-10-2019 End: 01-25-2022 ascorbate calcium-bioflavono id 1,000-200 mg Tab Take 1,000 mg by mouth . 0 04/10/2019 01/25/2022 Discontinued (Error) Aspirin (1 source) Platelet Aggregation Inhibitor, Nonsteroidal Anti-inflammatory Drug Start: 01-25-2022 End: 01-25-2022 aspirin EC tablet 325 mg 0.4 ml enoxaparin sodium 100 mg/ml prefilled syringe (1 source) Low Molecular Weight Heparin Start: 01-25-2022 End: 01-25-2022 enoxaparin (LOVENOX) syringe 40 mg ketoconazole 20 mg/ml topical cream (6 sources) Azole Antifungal Start: 03-05-2022 End: 11-30-2022 ketoconazole 2% topical cream Apply 1 caio, Topical, qDay, # 60 gram(s), 2 Refill(s), [facility], Cream, 158, cm, 03/05/22 10:39:00 EDT, Height, 95.3 Start Date: 03/05/22 Stop Date: 11/30/22 Status: Ordered Problems Active Problems Problem Classification Problem Date Documented Date Episodic/Chronic Conditions associated with dizziness or vertigo (2 sources) Dizziness; Translations: [Dizziness and giddiness] Onset: 01-25-2022 Episodic Disorders of lipid metabolism (6 sources) Mixed hyperlipidemia 06-19-2019 Chronic Esophageal disorders (6 sources) Gastroesophageal reflux disease 06-19-2019 Chronic Mycoses (6 sources) Candidal intertrigo 06-10-2021 Episodic Other connective tissue disease (2 sources) Foot pain 03-05-2022 Episodic Other nutritional; endocrine; and metabolic disorders (1 source) Body mass index 30+ - obesity; Translations: [Obesity, unspecified] Onset: 01-24-2022 01-24-2022 Chronic Residual codes; unclassified (6 sources) Sleep apnea 06-19-2019 Chronic Residual codes; unclassified (6 sources) Postmenopausal state 10-02-2021 Episodic Spondylosis; intervertebral disc disorders; other back problems (4 sources) Low back pain 02-18-2022 Episodic Thyroid disorders (6 sources) Hypothyroidism 06-19-2019 Chronic Unclassified (3 sources) Pain in right lower leg / M79.661(ICD-10) Onset: 12-01-2017 Unclassified (1 source) Localized edema / R60.0(ICD-10) Onset: 12-02-2017 Unclassified (6 sources) Patient encounter status 01-17-2021 Past or Other Problems Problem Classification Problem Date Documented Da te Episodic/Chronic Unclassified (1 source) Localized edema; Translations: [Localized edema] Onset: 12-01-2017 Episodic Unclassified (1 source) Pain in right lower leg; Translations: [Pain in right lower leg] Onset: 12-01-2017 Results Test Name Value Interpretation Reference Range Facil ity Vital Signs Date Time Vital Sign Value Performing Clinician Kirit ponce 01-25-2022 07:53-0400 Body temperature 97.5 [degF] [facility] Work Phone: [facility] 01-25-2022 07:53-0400 Diastolic blood pressure 86 mm[Hg] [facility] Work Phone: [facility] 01-25-2022 07:53-0400 Heart rate 61 /min [facility] Work Phone: [facility] 01-25-2022 07:53-0400 SaO2% (BldA) [Mass fraction] 94 % [facility] Work Phone: [facility] 01-25-2022 07:53-0400 Systolic blood pressure 129 mm[Hg] [facility] Work Phone: [facility] 01-25-2022 04:00-0400 Respiratory rate 13 /min [facility] Work Phone: [facility] 01-25-2022 02:23-0400 Body height 157.5 cm [facility] Work Phone: [facility] 01-25-2022 02:23-0400 Body mass index (BMI) [Ratio] 37.3 kg/m2 [facility] Work Phone: [facility] 01-25-2022 02:23-0400 Body weight 92.5 kg [facility] Work Phone: [facility] Encounters Encounter Date Encounter Type Care Provider Facility Start: 11-23-2023 End: 11-24-2023 ambulatory JUJU BECKHAM MD Facility:B Start: 12-01-2022 End: 12-02-2022 ambulatory JUJU BECKHAM MD Facility:[facility] Start: 12-01-2022 End: 12-01-2022 Patient encounter procedure JUJU BECKHAM MD [facility] Start: 03-16-2022 End: 03-16-2022 Patient encounter procedure JUJU BECHKAM MD [facility] Start: 02-18-2022 End: 02-18-2022 Patient encounter procedure NOHELIA DSOUZA RANGE [employer] [facility] Start: 02-18-2022 End: 02-18-2022 Patient encounter procedure JUJU BECKHAM MD [facility] Start: 01-25-2022 End: 01-25-2022 Evaluation and management of inpatient JABARI CORADO [facility] Start: 01-25-2022 End: 01-25-2022 Evaluation and management of inpatient [facility] Work Phone: [facility] Start: 01-24-2022 End: 01-25-2022 Emergency department patient visit PHYSICIAN EVELYN [facility] Start: 01-24-2022 ambulatory PROVIDER NOT IN SYSTEM [facility] Start: 10-16-2021 End: 10-16-2021 Patient encounter procedure JUJU BECKHAM MD [facility] Start: 10-03-2021 End: 10-03-2021 Patient encounter procedure JUJU BECKHAM MD [facility] Start: 12-01-2017 Ambulatory Radha Mejia Facilit [id number] Procedures Date Procedure Procedure Detail Performing Clinician Start: 01-25-2022 Fibrin dgradj produc ts d-dimer quantitative Jazmine Mcneil MD Work Phone: Start: 01-25-2022 Hemoglobin glycosyla jessie a1c Daniel Patel PA-C Work Phone: Start: 01-25-2022 Lipid panel Renato Patel PA-C Work Phone: Start: 01-25-2022 Mri brain brain stem w/o contrast material Daniel Patel PA-C Work Phone: Start: 04-20-2019 Microscopic examinat ion of blood, culture Immunizations Immunization Date Immunization Notes Care Provider Fa cili 07-19-2022 influenza virus vaccine, unspecified formulation JUJU BECKHAM MD [facility] Shyam 07-12-2022 SARS-CoV-2 mRNA (tozinameran) vaccine JUJU BECKHAM MD [facility]am 01-18-2022 Pfizer 12+ Years ravin-sucrose COVID-19 [facility] Work [facility]: [facility] 08-21-2021 SARS-CoV-2 mRNA (tozinameran) vaccine JUJU BECKHAM MD [facility] 05-23-2021 INFLUENZA IIV4 [id number] [facility] Work Phone: [facility] 05-23-2021 influenza virus vaccine, unspecified formulation JUJU BECKHAM MD [facility] 12-26-2020 SARS-CoV-2 mRNA (tozinameran) vaccine JUJU BECKHAM MD [facility] 12-05-2020 SARS-CoV-2 mRNA (tozinameran) vaccine JUJU BECKHAM MD [facility] 08-18-2020 influenza virus vaccine, unspecified formulation JUJU BECKHAM MD [facility] 08-18-2020 influenza, injectabl e, quadrivalent, contains preservative [facility] Work Phone: [facility] 12-26-2019 zoster vaccine, live JUJU BECKHAM MD [facility] 06-19-2019 tetanus toxoid, redu bakari diphtheria toxoid, and acellular pertussis vaccine, adsorbed JUJU BECKHAM MD [facility] 06-14-2019 influenza virus vaccine, unspecified formulation JUJU BECKHAM MD [facility] 06-14-2019 pneumococcal polysaccharide vaccine, 23 valent JUJU BECKHAM MD [facility] 06-14-2019 Seasonal trivalent influenza vaccine, adjuvanted, preservative free [facility] Work Phone: [facility] 09-10-2017 influenza virus vaccine, unspecified formulation JUJU BECKHAM MD [facility] 09-10-2017 influenza, seasonal, injectable, preservative free [facility] Work Phone: [facility] 09-10-2017 pneumococcal conjuga te vaccine, 13 valent JUJU BECKHAM MD [facility] 10-12-2015 influenza virus vaccine, unspecified formulation JUJU BECKHAM MD [facility] 10-12-2015 influenza, injectabl e, madin shawn canine kidney, preservative free [facility] Work Phone: [facility] 08-30-2014 influenza virus vaccine, unspecified formulation JUJU BECKHAM MD [facility] 08-30-2014 influenza, injectabl e, quadrivalent, preservative free [facility] Work Phone: [facility] 04-03-2014 tetanus toxoid, redu bakari diphtheria toxoid, and acellular pertussis vaccine, adsorbed JUJU BECKHAM MD [facility] 03-17-2001 varicella virus vaccine VIDYA BECKHAM MD [facility] Payers Date Payer Category Payer Medicare [id number] 2017 Medicare MEDICARE MEDICAR E PART A & B [id number] 2017-Present [phone] CGS [id number] PART [place] [address] [place] [place] [address] [id number] 2017 Medicare [id number] 2005 Private Health Insurance CIGMEKHI Wilson IGNA PPO/EPO/FUNDAMENTAL CARE [id number] 2005-Present [phone] [address] [place] [address] [id number] 2005 Private Health Insurance [id number] 1950 Unknown [id number] 1950 Unknown [id number] 1950 Unknown [id number] 1950 Unknown [id number] Medicare [id number] Social History Date Type Detail Facility Start: 04-10-2019 End: 01-24-2022 Never smoked tobacco (finding) Mai Neha dwight [facility] [place] [facility] Notes 06-23-2021 to 01-25-2022 Quick Note - Shazia Martin RN - 01/25/2022 10:30 AM EDTPlan of Kina - Luma Lama RN - 01/25/2022 3:06 AM EDTPlan of Kina - Luma Lama RN - 01/25/2022 1:59 AM EDTLaboratoryLaboratory Note Date & Type Note Facility 01-25-2022 Miscellaneous Notes After Visit Summary reviewed with patient including the signs and symptoms of stroke, when to call 911 for stroke symptoms, medications prescribed on discharge, importance of follow-up appointment with listed providers and individual stroke risk factor of none. Written material provided and questions answered by RN. Patient discharged by walks to home. IV taken out without any complications. Problem: Falls, Risk of Goal: Absence of falls Outcome: Partially Met Patient had complaints of dizzyness on entry into the hospital explained the need ask for assistance if she again feels dizzy and where the emergency button is in the bathroom. Patient is ambulating without difficulty was taught how to use call light and informed to ask for help if she becomes dizzy documented in this encounter [facility] 01-25-2022 Note Formatting of this n ote might be different from the original. After Visit Summary reviewed with patient including the signs and symptoms of stroke, when to call 911 for stroke symptoms, medications prescribed on discharge, importance of follow-up appointment with listed providers and individual stroke risk factor of none. Written material provided and questions answered by RN. Patient discharged by walks to home. IV taken out without any complications. [facility] 01-25-2022 Hospital course Narrative [facility] DISCHARGE SUMMARY Mary Stout Account: [id number] Admitted: 01/25/2022 Discharge Date/Time: 01/25/22 / 11:11 AM Handoff to PCP Routine hospital follow up Clinical Summary Mary Stout is a 71 y.o. female with a history of hypothyroidism who presented to [facility] with concern for dizziness and nausea. Labs at [facility] non acute. Imaging at [facility] including including CXR and CTA head and neck non acute. ECG at [facility] sinus brachycardia rate of 49 without acute ischemic changes noted. Patient transferred to [facility] 01/25/2022 for further management. Her workup was neg. She was discharged home. 1. Transient Neurologic Sx: per patient with sudden worsening dizziness starting 01/24 resolved on admission. Labs at [facility] non acute. Imaging at [facility] including including CXR and CTA head and neck non acute. ECG at [facility] sinus brachycardia rate of 49 without acute ischemic changes noted. MRI brain no acute. All symptoms resolved. Suspect vertigo. No further workup. Antivert prn if recurs. 2. Bradycardia: noted on ECG at [facility] as above. Patient asymptomatic on admission. Suspect low baseline. Discharge Medications Medication List START taking these medications meclizine 12.5 mg tablet Commonly known as: ANTIVERT Take 1 (one) tablet (12.5 mg total) by mouth 3 (three) times a day as needed for dizziness . CONTINUE taking these medications apple cider vinegar 300 mg Tab ascorbate calcium-bioflavonoid 500-200 mg Tab biotin 5,000 mcg Subl calcium carbonate-vitamin D3 600 mg-5 mcg (200 unit) per tablet cinnamon bark 500 mg capsule cyanocobalamin (vitamin B-12) 1,000 mcg Tber fish oil-omega-3 fatty acids 300-1,000 mg capsule levothyroxine 50 MCG tablet Commonly known as: SYNTHROID, LEVOTHROID vmruqoon-ibv-NW-lycopen-lutein 0.4 mg-300 mcg- 250 mcg Tab multivitamin per tablet Commonly known as: THERAGRAN omeprazole 40 MG capsule Commonly known as: PRILOSEC Probiotic 10 billion cell Cap capsule Generic drug: Lactobacillus acidophilus vitamin B-6 100 MG tablet Generic drug: pyridoxine (vitamin B6) Where to Get Your Medications These [facility] [place] [facility] [place] [id number] meclizine 12.5 mg tablet Physician(s) Family: Physician No, Phone: None, Address: [facility] Follow Up: No follow-up provider specified. Additional Information: Patient seen and examined day of discharge. For more information regarding patient's care, including complete radiology reports, please contact [facility] at Patient instructions, including activity, were given to the patient/family at discharge. Please see the After Visit Summary in the medical record for details. Time spent on discharge: > 30 minutes Completed by: Hazel Norman on 01/25/22, 11:11 AM documented in this encounter [facility] 01-25-2022 Note Formatting of this n ote might be different from the original. Problem: Falls, Risk of Goal: Absence of falls Outcome: Partially Met Patient had complaints of dizzyness on entry into the hospital explained the need ask for assistance if she again feels dizzy and where the emergency button is in the bathroom. [facility] 01-25-2022 Note Formatting of this n ote might be different from the original. Patient is ambulating without difficulty was taught how to use call light and informed to ask for help if she becomes dizzy [facility] 01-25-2022 History and physical note [place] History and Physical Note 01/25/22 Mary Stout 1950 [id number] Assessment/Plan: Mary Stout is a 71 y.o. female with a history of hypothyroidism who presented to [facility] with concern for dizziness and nausea. Labs at [facility] non acute. Imaging at [facility] including including CXR and CTA head and neck non acute. ECG at [facility] sinus brachycardia rate of 49 without acute ischemic changes noted. Patient transferred to [facility] 01/25/2022 for further management. 1. Transient Neurologic Sx: per patient with sudden worsening dizziness starting 01/24 resolved on admission. 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 Labs at [facility] non acute. Imaging at [facility] including including CXR and CTA head and neck non acute. ECG at [facility] sinus brachycardia rate of 49 without acute ischemic changes noted. Stroke neurology saw patient at [facility] and recommended MRI brain per chart review. Supportive care. PT/OT/RESIDENTIAL THERAPIST/Vestibular. Neuro checks. Permissive HTN. ASA. MRI brain, lipid panel and A1c pending. Neurology consulted. 2. Bradycardia: noted on ECG at [facility] as above. Patient asymptomatic on admission. Tele. Monitor. TSH with FT4, mag, and phos pending. 3. Hypothyroidism: per history. Continued home synthroid. 4. GERD: continued home PPI. 5. Obesity: BMI 36.58 on admission. Lifestyle modification recommended. 6. Code status: Full 7. DVT Prophylaxis: Lovenox The following Vizient risk variables were noted and present on admission: Alkalosis Please see assessment and plan for further details. Current living situation: Home Expected Disposition: TBD Estimated discharge date: TBD Chief Complaint: Dizziness, nausea History of Present Illness: Mary Stout is a 71 y.o. female with a history of hypothyroidism who presented to [facility] with concern for dizziness and nausea. Labs at [facility] non acute. Imaging at [facility] including including CXR and CTA head and neck non acute. ECG at [facility] sinus brachycardia rate of 49 without acute ischemic changes noted. Patient transferred to [facility] 01/25/2022 for further management. Patient new to [place] therefore previous labs, imaging, vitals, and notes reviewed. Patient was seen and examined at bedside. Patient presents to [facility] with concern for dizziness and nausea that started around 2 hours ago prior to presenting to ED. Patient reports that otherwise she had a pressure sensation, or headache sensation but denied any speech changes or focal weakness in the extremities. Patient reports that dizziness did seem worse with position when standing up. Patient reports that otherwise symptoms are completely resolved on admission. She states that she has not had any chest pain, shortness of breath, fever, chills, headache, head trauma, or vision changes. Reports compliance of medications at home. Full code confirmed admission. ROS: 10 systems were reviewed and negative, except as noted above. Past Medical, Surgical, Social, Family History: Past Medical History: Diagnosis Date Disease of thyroid gland GERD (gastroesophageal reflux disease) Obesity (BMI 30-39.9) Past Surgical History: Procedure Laterality Date APPENDECTOMY APPENDECTOMY ORTHOPEDIC SURGERY Social History Socioeconomic History Marital status: Tobacco Use Smoking status: Never Smoker Smokeless tobacco: Never Used Substance and Sexual Activity Alcohol use: Never Drug use: Never Family History Problem Relation Age of Onset Diabetes Mother Home Medications: No current outpatient medications on file as of 01/25/2022. Physical Exam: Temp 98 F (36.7 C) (Oral) Resp 16 Ht 5' 2 Wt 92.5 kg (203 lb 14.8 oz) SpO2 96% BMI 37.30 kg/m General: NAD Eyes: EOMI ENT: neck supple Cardiovascular: Regular rate. Respiratory: Clear to auscultation Gastrointestinal: Soft, non tender, obese Genitourinary: no suprapubic tenderness Musculoskeletal: No edema Skin: warm, dry. Normal upper and lower motor strength. No facial droop. No nystagmus Neuro: Alert and oriented. Psych: Mood appropriate. Cooperative Labs, Imaging, and Studies reviewed: Results from last 7 days Lab Units 01/24/22199901/24/221948 WBC K/mcL -- 6.20 HGB g/dL -- 13.4 HCT % -- 40.9 HEMATOCRITPOC % 41 -- PLT K/mcL -- 231 Results from last 7 days Lab Units 01/24/221999 POC BUN mg/dL 23 POC CREATININE (EPOC) mg/dL 0.77 Results from last 7 days Lab Units 01/24/221953 POCINR 1.0 Associated attestation - Jazmine Mcneil MD - 01/25/2022 7:39 AM EDT I have personally performed a prku-lw-jlit diagnostic evaluation of this patient on 01/25/2022. Patient seen independently. Labs and imaging personally reviewed. I personally completed a substantive exam as detailed below. Agree with plan as detailed in the note below by ALBERT Patel PA-C with the following additions: Patient presented with sudden transient dizziness and vertigo. Symptoms resolved on admission. No focal neuro deficit. Tele showed sinus bradycardia. Workup significant for CTA head and neck non acute, EKG sinus jose. No ST changes. TSH wnl, Hb wnl. Plan to monitor on tele. MRI brain per neuro recs. Check Troponin. If stroke work ups negative. Will consider Echo and event monitor. Physical Exam: BP (!) 149/78 (BP Location: Right arm, Patient Position: Lying) Pulse (!) 51 Temp 98 F (36.7 C) (Oral) Resp 13 Ht 5' 2 Wt 92.5 kg (203 lb 14.8 oz) SpO2 98% BMI 37.30 kg/m General: No acute distress, obese Eyes: EOMI, PERRL, no nystagmus ENT: neck supple, no mass, full range of motion Cardiovascular: Regular rate and rhythm. No murmur. Respiratory: Clear to auscultation bilaterally, no respiratory distress Gastrointestinal: Soft, non-tender, non-distended Genitourinary: no suprapubic tenderness Musculoskeletal: No edema in bilateral lower extremities; No large joint deformities. Skin: warm, dry, without rash Neuro: Alert and oriented no drift, CN, Sensation and motor exam wnl. no focal deficits. Psych: Mood appropriate, affect appropriate to clinical situation [facility] 01-25-2022 History and physical note [place] History and Physical Note 01/25/22 Mary Stout 1950 [id number] Assessment/Plan: Mary Stout is a 71 y.o. female with a history of hypothyroidism who presented to [facility] with concern for dizziness and nausea. Labs at [facility] non acute. Imaging at [facility] including including CXR and CTA head and neck non acute. ECG at [facility] sinus brachycardia rate of 49 without acute ischemic changes noted. Patient transferred to [facility] 01/25/2022 for further management. 1. Transient Neurologic Sx: per patient with sudden worsening dizziness starting 01/24 resolved on admission. 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 Labs at [facility] non acute. Imaging at [facility] including including CXR and CTA head and neck non acute. ECG at [facility] sinus brachycardia rate of 49 without acute ischemic changes noted. Stroke neurology saw patient at [facility] and recommended MRI brain per chart review. Supportive care. PT/OT/RESIDENTIAL THERAPIST/Vestibular. Neuro checks. Permissive HTN. ASA. MRI brain, lipid panel and A1c pending. Neurology consulted. 2. Bradycardia: noted on ECG at [facility] as above. Patient asymptomatic on admission. Tele. Monitor. TSH with FT4, mag, and phos pending. 3. Hypothyroidism: per history. Continued home synthroid. 4. GERD: continued home PPI. 5. Obesity: BMI 36.58 on admission. Lifestyle modification recommended. 6. Code status: Full 7. DVT Prophylaxis: Lovenox The following Vizient risk variables were noted and present on admission: Alkalosis Please see assessment and plan for further details. Current living situation: Home Expected Disposition: TBD Estimated discharge date: TBD Chief Complaint: Dizziness, nausea History of Present Illness: Mary Stout is a 71 y.o. female with a history of hypothyroidism who presented to [facility] with concern for dizziness and nausea. Labs at [facility] non acute. Imaging at [facility] including including CXR and CTA head and neck non acute. ECG at [facility] sinus brachycardia rate of 49 without acute ischemic changes noted. Patient transferred to [facility] 01/25/2022 for further management. Patient new to [place] therefore previous labs, imaging, vitals, and notes reviewed. Patient was seen and examined at bedside. Patient presents to [facility] with concern for dizziness and nausea that started around 2 hours ago prior to presenting to ED. Patient reports that otherwise she had a pressure sensation, or headache sensation but denied any speech changes or focal weakness in the extremities. Patient reports that dizziness did seem worse with position when standing up. Patient reports that otherwise symptoms are completely resolved on admission. She states that she has not had any chest pain, shortness of breath, fever, chills, headache, head trauma, or vision changes. Reports compliance of medications at home. Full code confirmed admission. ROS: 10 systems were reviewed and negative, except as noted above. Past Medical, Surgical, Social, Family History: Past Medical History: Diagnosis Date Disease of thyroid gland GERD (gastroesophageal reflux disease) Obesity (BMI 30-39.9) Past Surgical History: Procedure Laterality Date APPENDECTOMY APPENDECTOMY ORTHOPEDIC SURGERY Social History Socioeconomic History Marital status: Tobacco Use Smoking status: Never Smoker Smokeless tobacco: Never Used Substance and Sexual Activity Alcohol use: Never Drug use: Never Family History Problem Relation Age of Onset Diabetes Mother Home Medications: No current outpatient medications on file as of 01/25/2022. Physical Exam: Temp 98 F (36.7 C) (Oral) Resp 16 Ht 5' 2 Wt 92.5 kg (203 lb 14.8 oz) SpO2 96% BMI 37.30 kg/m General: NAD Eyes: EOMI ENT: neck supple Cardiovascular: Regular rate. Respiratory: Clear to auscultation Gastrointestinal: Soft, non tender, obese Genitourinary: no suprapubic tenderness Musculoskeletal: No edema Skin: warm, dry. Normal upper and lower motor strength. No facial droop. No nystagmus Neuro: Alert and oriented. Psych: Mood appropriate. Cooperative Labs, Imaging, and Studies reviewed: Results from last 7 days Lab Units 01/24/22199901/24/221948 WBC K/mcL -- 6.20 HGB g/dL -- 13.4 HCT % -- 40.9 HEMATOCRITPOC % 41 -- PLT K/mcL -- 231 Results from last 7 days Lab Units 01/24/221999 POC BUN mg/dL 23 POC CREATININE (EPOC) mg/dL 0.77 Results from last 7 days Lab Units 01/24/221953 POCINR 1.0 Associated attestation - Jazmine Mcneil MD - 01/25/2022 7:39 AM EDT I have personally performed a njjy-di-aese diagnostic evaluation of this patient on 01/25/2022. Patient seen independently. Labs and imaging personally reviewed. I personally completed a substantive exam as detailed below. Agree with plan as detailed in the note below by ALBERT Patel PA-C with the following additions: Patient presented with sudden transient dizziness and vertigo. Symptoms resolved on admission. No focal neuro deficit. Tele showed sinus bradycardia. Workup significant for CTA head and neck non acute, EKG sinus jose. No ST changes. TSH wnl, Hb wnl. Plan to monitor on tele. MRI brain per neuro recs. Check Troponin. If stroke work ups negative. Will consider Echo and event monitor. Physical Exam: BP (!) 149/78 (BP Location: Right arm, Patient Position: Lying) Pulse (!) 51 Temp 98 F (36.7 C) (Oral) Resp 13 Ht 5' 2 Wt 92.5 kg (203 lb 14.8 oz) SpO2 98% BMI 37.30 kg/m General: No acute distress, obese Eyes: EOMI, PERRL, no nystagmus ENT: neck supple, no mass, full range of motion Cardiovascular: Regular rate and rhythm. No murmur. Respiratory: Clear to auscultation bilaterally, no respiratory distress Gastrointestinal: Soft, non-tender, non-distended Genitourinary: no suprapubic tenderness Musculoskeletal: No edema in bilateral lower extremities; No large joint deformities. Skin: warm, dry, without rash Neuro: Alert and oriented no drift, CN, Sensation and motor exam wnl. no focal deficits. Psych: Mood appropriate, affect appropriate to clinical situation documented in this encounter [facility] 06-23-2021 Evaluation + Plan note Future Scheduled TestsUrine Culture 06/23/21 [facility] 06-23-2021 Evaluation + Plan note Future Scheduled TestsUrine Culture 06/23/21XR Spine Lumbar AP/LAT 02/18/22 [facility] Evaluation + Plan note Future Appointments Appointment Date:03/05/2022 11:00:00 AM Scheduled Provider:JUJU BECKHAM MD Location:[facility] Appointment Type:PC OV Future Scheduled TestsUrine Culture 06/23/21XR Spine Lumbar AP/LAT 02/18/22 [facility] Evaluation + Plan note Future Appointments Appointment Date:12/11/2022 07:30:00 AM Scheduled Provider:JUJU BECKHAM MD Location:[facility] Appointment Type:PC OV Future Scheduled TestsXR Spine Lumbar AP/LAT 02/18/22 [facility] No data available for this section [facility] Discharge instructions No data available for this section [facility] Progress note No data available for this section [facility] Reason for visit Narrative* Auth/Cert Specialty Diagnoses / Procedures Referred By Contac t Referred To Contact Diagnoses Dizziness vertigo, peripheral vs tia, bradycardia Referral ID Status Reason Start Date Expiration Date Visits Re quested Visits Authorized [id number] 1 1 [facility] Summary Purpose Family History No Family History Records FoundNo Family History Records FoundNo Family History Records FoundNo Family History Records FoundNo Family History Records Found Advance Directives No Advanced Directives Records FoundDocuments on File Type Date Recorded 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 Expl anatchelle Advance Directives and Brooke stanton Will 01/25/2022 12:05 AM Latest Code Status on File Code Status Date Activated Date Inactivated Comments Full Code 01/25/2022 12:35 AM 01/25/2022 2:49 PM Additional Source Comments INFORMATION SOURCE (unrecogn ized section and content) DATE CREATED AUTHOR AUTHOR'S ORGANIZ ATION 07/10/2019 [facility] DATE CREATED AUTHOR AUTHOR'S ORGANIZ ATION 01/26/2022 [facility] DATE CREATED AUTHOR AUTHOR'S ORGANIZ ATION 01/28/2022 [facility] DATE CREATED AUTHOR AUTHOR'S ORGANIZ ATION 11/28/2023 [facility] ([place]) Scheduled Active and Recently Administ ered Medications (unrecognized section and content) PRN Medication Order 01/23/2022 01/24/2022 01/25/2022 aluminum-magnesium hydroxide-simethicone (MAALOX PLUS) 200-200-20 mg/5 mL suspension 30 mL 30 mL, Oral, Every 4 hours PRN, indigestion, Starting on 01/25/22 at 0035 hydrALAZINE (APRESOLINE) injection 10 mg(Linked Group 4) 10 mg, Intravenous, Every 2 hour PRN, As ordered IF HR = 100 or less AND SBP or DBP greater than ranges stated in Hemodynamic Goal orders., Starting on 01/25/22 at 0110, Use labetalol first if HR greater than 60. Do not use hydralazine if HR greater than 100. May repeat dose in 15 minutes if SBP or DBP remains above ranges stated in Hemodynamic Goal orders. If, 15 minutes after a repeat dose, SBP or DBP remains above ranges stated in Hemodynamic Goal orders, initiate antihypertensive infusion IF ordered (Otherwise notify physician). If infusion already running, titrate it as ordered. labetaloL (NORMODYNE) injection 10 mg(Linked Group 4) 10 mg, Intravenous, Every 2 hour PRN, As ordered IF HR greater than 60 AND SBP or DBP greater than ranges stated in Hemodynamic Goal orders., Starting on 01/25/22 at 0110, Do not use labetolol if HR = 60 or less (Use hydralazine in that case, if ordered). May repeat dose in 15 minutes if SBP or DBP remains above ranges stated in Hemodynamic Goal orders. If, 15 minutes after a repeat dose, SBP or DBP remains above ranges stated in Hemodynamic Goal orders, initiate antihypertensive infusion IF ordered (Otherwise notify physician). If infusion already running, titrate it as ordered. sodium chloride (PF) (NS) flush 5 mL(Linked Group 2) 5 mL, Intravenous, As needed, line care, Starting on 01/25/22 at 0034 sodium chloride (PF) (NS) flush 5 mL(Linked Group 3) 5 mL, Intravenous, As needed, line care, Starting on Wed01/25/22 at 0108 sodium chloride 0.9% (NS)(Linked Group 2) 0-150 mL/hr, Intravenous, As needed, To flush line after IV infusions when no maintenance IV ordered or a compatibility issue. Infuse 20ml at the same rate as the secondary infusion, Starting on Wed01/25/22 at 0034, Run as Primary IV. NOT intended for KVO. sodium chloride 0.9% (NS)(Linked Group 3) 0-150 mL/hr, Intravenous, As needed, To flush line after IV infusions when no maintenance IV ordered or a compatibility issue. Infuse 20ml at the same rate as the secondary infusion, Starting on Wed01/25/22 at 0108, Run as Primary IV. NOT intended for KVO. Linked Groups Order Group 1: aspirin EC tablet 325 mgJump to med 325 mg, Oral, Daily, First dose on 01/25/22 at 0200
DO NOT CRUSH OR CHEW.
Or aspirin suppository 300 mgJump to med 300 mg, Rectal, Daily, First dose on 01/25/22 at 0200
Use oral route first, if tolerated.
Group 2: Saline lock IV (CANCELED) Routine, Continuous, Starting on 01/25/22 at 0035, Until Specified And sodium chloride (PF) (NS) flush 5 mLJump to med 5 mL, Intravenous, As needed, line care, Starting on Wed01/25/22 at 0034 And sodium chloride (PF) (NS) flush 5 mLJump to med 5 mL, Intravenous, Every 8 hours scheduled, First dose on 01/25/22 at 0130
Saline lock
And sodium chloride 0.9% (NS)Jump to med 0-150 mL/hr, Intravenous, As needed, To flush line after IV infusions when no maintenance IV ordered or a compatibility issue. Infuse 20ml at the same rate as the secondary infusion, Starting on Wed01/25/22 at 0034
Run as Primary IV. NOT intended for KVO.
Group 3: Saline lock IV (CANCELED) Routine, Continuous, Starting on Wed01/25/22 at 0109, Until Specified And sodium chloride (PF) (NS) flush 5 mLJump to med 5 mL, Intravenous, As needed, line care, Starting on Wed01/25/22 at 0108 And sodium chloride (PF) (NS) flush 5 mLJump to med 5 mL, Intravenous, Every 8 hours scheduled, First dose on Wed01/25/22 at 0200
Saline lock
And sodium chloride 0.9% (NS)Jump to med 0-150 mL/hr, Intravenous, As needed, To flush line after IV infusions when no maintenance IV ordered or a compatibility issue. Infuse 20ml at the same rate as the secondary infusion, Starting on Wed01/25/22 at 0108
Run as Primary IV. NOT intended for KVO.
Group 4: labetaloL (NORMODYNE) injection 10 mgJump to med 10 mg, Intravenous, Every 2 hour PRN, As ordered IF HR greater than 60 AND SBP or DBP greater than ranges stated in Hemodynamic Goal orders., Starting on Wed01/25/22 at 0110
Do not use labetolol if HR = 60 or less (Use hydralazine in that case, if ordered). May repeat dose in 15 minutes if SBP or DBP remains above ranges stated in Hemodynamic Goal orders. If, 15 minutes after a repeat dose, SBP or DBP remains above ranges stated in Hemodynamic Goal orders, initiate antihypertensive infusion IF ordered (Otherwise notify physician). If infusion already running, titrate it as ordered.
Or hydrALAZINE (APRESOLINE) injection 10 mgJump to med 10 mg, Intravenous, Every 2 hour PRN, As ordered IF HR = 100 or less AND SBP or DBP greater than ranges stated in Hemodynamic Goal orders., Starting on 01/25/22 at 0110
Use labetalol first if HR greater than 60. Do not use hydralazine if HR greater than 100. May repeat dose in 15 minutes if SBP or DBP remains above ranges stated in Hemodynamic Goal orders. If, 15 minutes after a repeat dose, SBP or DBP remains above ranges stated in Hemodynamic Goal orders, initiate antihypertensive infusion IF ordered (Otherwise notify physician). If infusion already running, titrate it as ordered.
Care Teams (unrecognized sec tion and content) Care Team (unrecognized sect ion and content) Care Team Personnel Name: JUJU BECKHAM MD Position: P4 Physician - Primary Care Member Role: Primary Care Physician Address: Address: [address] [place] [address] Care Team Related Persons Name: JACKY ARRIETA FOR RECORDS PERTAINING TO PATIENTS WHO ARE OR HAVE BEEN ENROLLED IN A CHEMICAL DEPENDENCY/SUBSTANCEABUSE PROGRAM, SOME INFORMATION MAY BE OMITTED. This clinical summary was aggregated from multiple sources. Caution should be exercised in using it in the provision of clinical care. This summary normalizes information from multiple sources, and as a consequence, information in this document may materially change the coding, format and clinical context of patient data. In addition, data may be omitted in some cases. CLINICAL DECISIONS SHOULD BE BASED ON THE PRIMARY CLINICAL RECORDS. [facility] [employer] [facility]. provides no warranty or guarantee of the accuracy or completeness of information in this document.
--- OUTSIDE RECORDS SUMMARY | 2023-12-03 08:10 | XMS RPT_ITS | CCD ---
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 (9 sources) traMADol; Translations: [tramadol] Drug Allergy 2 Nausea (finding), GI Intolerance [facility] (2 sources) Acetaminophen / HYDROcodone; Translations: [HYDROCODONE-ACET AMINOPHEN] Drug Allergy 9 [facility] Repository Medications Current Medications Medication Drug Class(es) [...] # 60 gram(s), 2 Refill(s), [facility], Cream, 158, cm, 03/05/22 10:39:00 EDT, Height, [...] temperature 97.5 [degF] [facility] Work Phone: [facility] 01-25-2022 07:53-0400 Diastolic blood pressure 86 mm[Hg] [facility] Work Phone: [facility] 01-25-2022 07:53-0400 Heart rate 61 /min [facility] Work Phone: [facility] 01-25-2022 07:53-0400 SaO2% (BldA) [Mass fraction] 94 % [facility] Work Phone: [facility] 01-25-2022 07:53-0400 Systolic blood pressure 129 mm[Hg] [facility] Work Phone: [facility] 01-25-2022 04:00-0400 Respiratory rate 13 /min [facility] Work Phone: [facility] 01-25-2022 02:23-0400 Body height 157.5 cm [facility] Work Phone: [facility] 01-25-2022 02:23-0400 Body mass index (BMI) [Ratio] 37.3 kg/m2 [facility] Work Phone: [facility] 01-25-2022 02:23-0400 Body weight 92.5 kg [facility] Work Phone: [facility] Encounters Encounter Date Encounter Type Care Provider Facility Start: 11-23-2023 End: 11-24-2023 ambulatory JUJU BECKHAM MD Facility:B Start: 12-01-2022 End: 12-02-2022 ambulatory JUJU BECKHAM MD Facility:B Start: 12-01-2022 End: 12-01-2022 Patient encounter procedure JUJU BECKHAM MD [facility] Start: 03-16-2022 End: 03-16-2022 Patient encounter procedure JUJU BECKHAM MD [facility] Start: 02-18-2022 End: 02-18-2022 Patient encounter procedure NOHELIA DSOUZA TOURIST ESCORT-DISPATCH SPECIALIST [facility] Start: 02-18-2022 End: 02-18-2022 Patient encounter procedure JUJU BECKHAM MD [facility] Start: 01-25-2022 End: 01-25-2022 Evaluation and management of inpatient JABARI [facility]AD[facility] Start: 01-25-2022 End: 01-25-2022 Evaluation and management of inpatient [facility] Work Phone: [facility] Start: 01-24-2022 End: 01-25-2022 Emergency department patient visit PHYSICIAN EVELYN [facility] Start: 01-24-2022 ambulatory PROVIDER NOT IN SYSTEM [facility] Start: 10-16-2021 End: 10-16-2021 Patient encounter procedure JUJU BECKHAM MD [facility] Start: 10-03-2021 End: 10-03-2021 Patient encounter procedure JUJU BECKHAM MD [facility] Start: 12-01-2017 Ambulatory Radha Mejia Facilit [id number] [...] virus vaccine, unspecified formulation JUJU BECKHAM MD [facility]am 07-12-2022 SARS-CoV-2 mRNA (tozinameran) vaccine JUJU BECKHAM MD [facility] 01-18-2022 Pfizer 12+ Years ravin-sucrose COVID-19 vaccine [facility] Work Phone: [facility] 08-21-2021 SARS-CoV-2 mRNA (tozinameran) vaccine JUJU BECKHAM MD [facility] 05-23-2021 INFLUENZA IIV4 [id number] [id number] [facility] Work Phone: [facility] 05-23-2021 influenza virus vaccine, unspecified formulation JUJU BECKHAM MD [facility] 12-26-2020 SARS-CoV-2 mRNA (tozinameran) vaccine JUJU BECKHAM MD [facility] 12-05-2020 SARS-CoV-2 mRNA (tozinameran) vaccine JUJU BECKHAM MD [facility] 08-18-2020 influenza virus vaccine, unspecified formulation JUJU BECKHAM MD [facility] 08-18-2020 influenza, injectabl e, quadrivalent, contains preservative [facility] Work Phone: [facility] 12-26-2019 zoster vaccine, live JUJU BECKHAM MD [facility] 06-19-2019 tetanus toxoid, redu bakari diphtheria toxoid, and acellular pertussis vaccine, adsorbed JUJU BECKHAM MD [facility] 06-14-2019 influenza virus vaccine, unspecified formulation JUJU BECKHAM MD [facility] 06-14-2019 pneumococcal polysaccharide vaccine, 23 valent JUJU BECKHAM MD [facility] 06-14-2019 Seasonal trivalent influenza vaccine, adjuvanted, preservative free [facility] Work Phone: [facility] 09-10-2017 influenza virus vaccine, unspecified formulation JUJU BECKHAM MD [facility] 09-10-2017 influenza, seasonal, injectable, preservative free [facility] Work Phone: [facility] 09-10-2017 pneumococcal conjuga te vaccine, 13 valent JUJU BECKHAM MD [facility] 10-12-2015 influenza virus vaccine, unspecified formulation JUJU BECKHAM MD [facility] 10-12-2015 influenza, injectabl e, madin shawn canine kidney, preservative free [facility] Work Phone: [facility] 08-30-2014 influenza virus vaccine, unspecified formulation JUJU BECKHAM MD [facility] 08-30-2014 influenza, injectabl e, quadrivalent, preservative free [facility] Work Phone: [facility] 04-03-2014 tetanus toxoid, redu bakari diphtheria toxoid, and acellular pertussis vaccine, adsorbed JUJU BECKHAM MD [facility] 03-17-2001 varicella virus vaccine VIDYA BECKHAM MD [facility] Payers Date Payer Category Payer Medicare [id number] 2017 Medicare MEDICARE MEDICAR E PART A & B [id number] 2017-Present [phone] CGS [id number] PART [place] [address] [id number] 2017 Medicare [id number] 2005 Private Health Insurance CIGMEKHI Wilson IGNA PPO/EPO/FUNDAMENTAL CARE [id number] 2005-Present [phone] [address] [place] [address] [id number] 2005 Private Health Insurance [id number] 1950 Unknown [id number] 1950 Unknown [id number] 1950 Unknown [id number] 1950 Unknown [id number] Medicare [id number] Social History Date Type Detail Facility Start: 04-10-2019 End: 01-24-2022 Never smoked tobacco (finding) Mai Neha dwight One[facility] Notes 06-23-2021 to 01-25-2022 Quick Note [...] she becomes dizzy documented in this encounter [facility] 01-25-2022 Note Formatting of this [...] home. IV taken out without any complications. [facility] 01-25-2022 Hospital course [facility] Mary Stout Account: [id number] Admitted: 01/25/2022 Discharge Date/Time: 01/25/22 / 11:11 AM Handoff to PCP Routine hospital follow up Clinical Summary Mary Stout is a 71 y.o. female with a history of hypothyroidism who presented to [facility] with concern for dizziness and nausea. Labs at [facility] non acute. Imaging at [facility] including including CXR and CTA head and neck non acute. ECG at [facility] sinus brachycardia rate of 49 without acute ischemic changes noted. Patient transferred to [facility] 01/25/2022 for further management. Her workup was neg. She was discharged home. 1. Transient Neurologic Sx: per patient with sudden worsening dizziness starting 01/24 resolved on admission. Labs at [facility] non acute. Imaging at [facility] including including CXR and CTA head and neck non acute. ECG at [facility] sinus brachycardia rate of 49 without acute ischemic changes noted. MRI brain no acute. All symptoms resolved. Suspect vertigo. No further workup. Antivert prn if recurs. 2. Bradycardia: noted on ECG at [facility] as above. Patient asymptomatic on admission. Suspect [...] MCG tablet Commonly known as: SYNTHROID, LEVOTHROID flmguyxm-lna-GQ-lycopen-lutein 0.4 mg-300 mcg- 250 mcg Tab multivitamin per tablet Commonly known as: THERAGRAN omeprazole 40 MG capsule Commonly known as: PRILOSEC Probiotic 10 billion cell Cap capsule Generic drug: Lactobacillus acidophilus vitamin B-6 100 MG tablet Generic drug: pyridoxine (vitamin B6) Where to Get Your Medications [facility] [place] [facility] [place] [id number] meclizine 12.5 mg tablet Physician(s) Family: Physician No, Phone: None, Address: [facility] Follow Up: No follow-up provider specified. Additional Information: Patient seen and examined day of discharge. For more information regarding patient's care, including complete radiology reports, please contact [facility] at Patient instructions, including activity, were given to the patient/family at discharge. Please see the After Visit Summary in the medical record for details. Time spent on discharge: > 30 minutes Completed by: Hazel Norman on 01/25/22, 11:11 AM documented in this encounter [facility] 01-25-2022 Note Formatting of this n ote might be different from the original. Problem: Falls, Risk of Goal: Absence of falls Outcome: Partially Met Patient had complaints of dizzyness on entry into the hospital explained the need ask for assistance if she again feels dizzy and where the emergency button is in the bathroom. [facility] 01-25-2022 Note Formatting of this n ote might be different from the original. Patient is ambulating without difficulty was taught how to use call light and informed to ask for help if she becomes dizzy [facility] 01-25-2022 History and physical note [email or web address] History and Physical Note 01/25/22 Mary Stout 1950 [id number] Assessment/Plan: Mary Stout is a 71 y.o. female with a history of hypothyroidism who presented to [facility] with concern for dizziness and nausea. Labs at [facility] non acute. Imaging at [facility] including including CXR and CTA head and neck non acute. ECG at [facility] sinus brachycardia rate of 49 without acute ischemic changes noted. Patient transferred to [facility] 01/25/2022 for further management. 1. Transient Neurologic Sx: per patient with sudden worsening dizziness starting 01/24 resolved on admission. 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 Labs at [facility] non acute. Imaging at [facility] including including CXR and CTA head and neck non acute. ECG at [facility] sinus brachycardia rate of 49 without acute ischemic changes noted. Stroke neurology saw patient at [facility] and recommended MRI brain per chart review. Supportive care. PT/OT/SUPERVISOR PAPER TESTING/Vestibular. Neuro checks. Permissive HTN. ASA. MRI brain, lipid panel and A1c pending. Neurology consulted. 2. Bradycardia: noted on ECG at [facility] as above. Patient asymptomatic on admission. Tele. [...] a history of hypothyroidism who presented to [facility] with concern for dizziness and nausea. Labs at [facility] non acute. Imaging at [facility] including including CXR and CTA head and neck non acute. ECG at [facility] sinus brachycardia rate of 49 without acute ischemic changes noted. Patient transferred to [facility] 01/25/2022 for further management. Patient new to [place] therefore previous labs, imaging, vitals, and notes reviewed. Patient was seen and examined at bedside. Patient presents to [facility] with concern for dizziness and nausea that [...] AM EDT I have personally performed a [id number]-gz-bsri diagnostic evaluation of this patient on 01/25/2022. [...] Mood appropriate, affect appropriate to clinical situation [facility] 01-25-2022 History and physical note [email or web address] History and Physical Note 01/25/22 Mary Stout 1950 [id number] Assessment/Plan: Mary Stout is a 71 y.o. female with a history of hypothyroidism who presented to [facility] with concern for dizziness and nausea. Labs at [facility] non acute. Imaging at [facility] including including CXR and CTA head and neck non acute. ECG at [facility] sinus brachycardia rate of 49 without acute ischemic changes noted. Patient transferred to [facility] 01/25/2022 for further management. 1. Transient Neurologic Sx: per patient with sudden worsening dizziness starting 01/24 resolved on admission. 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 Labs at [facility] non acute. Imaging at [facility] including including CXR and CTA head and neck non acute. ECG at [facility] sinus brachycardia rate of 49 without acute ischemic changes noted. Stroke neurology saw patient at [facility] and recommended MRI brain per chart review. Supportive care. PT/OT/SUPERVISOR PAPER TESTING/Vestibular. Neuro checks. Permissive HTN. ASA. MRI brain, lipid panel and A1c pending. Neurology consulted. 2. Bradycardia: noted on ECG at [facility] as above. Patient asymptomatic on admission. Tele. [...] a history of hypothyroidism who presented to [facility] with concern for dizziness and nausea. Labs at [facility] non acute. Imaging at [facility] including including CXR and CTA head and neck non acute. ECG at [facility] sinus brachycardia rate of 49 without acute ischemic changes noted. Patient transferred to [facility] 01/25/2022 for further management. Patient new to [place] therefore previous labs, imaging, vitals, and notes reviewed. Patient was seen and examined at bedside. Patient presents to [facility] with concern for dizziness and nausea that [...] AM EDT I have personally performed a tfvh-pa-ccqu diagnostic evaluation of this patient on 01/25/2022. [...] to clinical situation documented in this encounter [facility] 06-23-2021 Evaluation + Plan note Future Scheduled TestsUrine Culture 06/23/21 [facility] 06-23-2021 Evaluation + Plan note Future Scheduled TestsUrine Culture 06/23/21XR Spine Lumbar AP/LAT 02/18/22 [facility] Evaluation + Plan note Future Appointments Appointment Date:03/05/2022 11:00:00 AM Scheduled Provider:JUJU BECKHAM MD Location:[facility] Appointment Type:PC OV Future Scheduled TestsUrine Culture 06/23/21XR Spine Lumbar AP/LAT 02/18/22 [facility] Evaluation + Plan note Future Appointments Appointment Date:12/11/2022 07:30:00 AM Scheduled Provider:JUJU BECKHAM MD Location:[facility] Appointment Type:PC OV Future Scheduled TestsXR Spine Lumbar AP/LAT 02/18/22 [facility] documented [facility] Narr[facility] No data available for this section [facility] Hospital Discharge instructions No data available for this section [facility] Progress note No data available for this section [facility] Reason for visit Narrative* Auth/Cert Specialty Diagnoses / Procedures Referred By Contac t Referred To Contact Diagnoses Dizziness vertigo, peripheral vs tia, bradycardia Referral ID Status Reason Start Date Expiration Date Visits Re quested Visits Authorized [id number] 1 1 [facility] Summary Purpose Family History No Family History Records FoundNo Family History Records FoundNo Family History Records FoundNo Family History Records FoundNo Family History Records Found Advance Directives No Advanced Directives Records FoundDocuments on File Type Date Recorded 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 Contamination Consultant Expl anatchelle Advance Directives and Brooke stanton Will 01/25/2022 12:05 AM Latest Code Status on File Code Status Date Activated Date Inactivated Comments Full Code 01/25/2022 12:35 AM 01/25/2022 2:49 PM Additional Source Comments INFORMATION SOURCE (unrecogn ized section and content) DATE CREATED AUTHOR AUTHOR'S ORGANIZ ATION 07/10/2019 [facility] tem DATE CREATED AUTHOR AUTHOR'S ORGANIZ ATION 01/26/2022 [facility] DATE CREATED AUTHOR AUTHOR'S ORGANIZ ATION 01/28/2022 [facility] DATE CREATED AUTHOR AUTHOR'S ORGANIZ ATION 11/28/2023 [facility] ([place]) Scheduled Active and Recently Administ [...] Member Role: Primary Care Physician Address: Address: [address] [place] [address] Care Team Related Persons Name: JACKY ARRIETA [...] BE BASED ON THE PRIMARY CLINICAL RECORDS. [facility]. provides no warranty or guarantee of the accuracy or completeness of information in this document.
== END | disposition home or self-care (01) ==
LOC: OPBI 12-03 07:53
PROVIDERS: PCP Family Medicine; Referring Provider Family Medicine; Visit Provider Family Medicine
DX: Z12.31 Encounter for screening mammogram for malignant neoplasm of breast (principal)
CPT/HCPCS: 77063; 77067

== ENCOUNTER → 2024-12-05 | Outpatient (CLI) | payer MEDICARE, OTHER, SELFPAY ==
--- NOTE | 2024-12-05 10:39 | BI_ITS ---
PROCEDURE: SCRN MAMM (CAD)W/FATOUMATA BILAT REASON FOR EXAM: F, Age 74 y/o, presents for annual screening mammogram . No family history of breast cancer. TECHNIQUE: Bilateral screening digital breast tomosynthesis with 2D and 3D images. Computer aided detection. COMPARISON: 12/02/2023, 12/01/2022 FINDINGS: The breasts are almost entirely fatty. No suspicious masses, areas of developing architectural distortion, or suspicious calcifications. BI/SCRN MAMM (CAD)W/FATOUMATA BILAT IMPRESSION: There is no mammographic evidence of malignancy in either breast. BI-RADS 1: NEGATIVE. RECOMMEND ANNUAL MAMMOGRAPHIC SCREENING. Follow-up code: Routine Follow-up The patient will be notified of the results by letter. [place] Location: [id number]
== END | disposition home or self-care (01) ==
PROVIDERS: PCP Family Medicine; Referring Provider Family Medicine; Visit Provider Family Medicine
DX: Z12.31 Encounter for screening mammogram for malignant neoplasm of breast (principal)
CPT/HCPCS: 77063; 77067

== ENCOUNTER 2025-05-08 08:00 | Outpatient (RCR) | payer MEDICARE, OTHER, SELFPAY ==
--- NOTE | 2025-03-22 14:29 | HP.PTEVAL_ITS ---
Patient's Visit Information Visit Information Visit Information: LENA STOUT is a 75 year old F referred to Physical Therapy by Dr. Salinas Vásquez MD with a diagnosis of SPINAL STENOSIS AT L4-5. Date of Evaluation: 03/20/25 Physical Therapist: Jyoti Doyle PT, Cert MDT Visit Plan Frequency: 2-3x /Week Duration: 4-6 Weeks Plan: AQUATIC THERAPY FOR PAIN RELIEF, POSTURE CORRECTION/STRENGTHENING, INSTRUCTION IN APPROPRIATE BODY MECHANICS AND ACTIVITY MODIFICATIONS. DLS STARTING WITH A NEUTRAL SPINE PROGRESSING ROM TOLERATED. NELY LE ROM, STRETCHING AND STRENGTHENING. HEP INSTRUCTION. 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 11 TRIPS PLANNED DURING SUMMER BREAK - SHORT TRIPS. HAS 4.5 ACRES TO MOW. Present symptoms: R LOW BACK PAIN, R HIP PAIN AND R GROIN PAIN. BURNING AND NUMBNESS. INTERMITTENT L LOW BACK PAIN. DENIES NELY LE SX'S OTHERWISE. Present since: ABOUT 3 WKS AGO (APPROX 02/26/25) Pain Scale: WORST 10/10, LEAST 4/10 Currently: 9/10 Is it getting better, worse or staying the same: STAYING THE SAME Commenced as a result of: NO APPARENT REASON Symptoms at onset: R HIP PAIN Worse: PROLONGED SITTING, RISING FROM SITTING, ACTIVITY IN GENERAL, STEPS, WALKING, CAN NOT LAY IN THE BED AT ALL. SLEEPING IN RECLINER. Better: RECLINER. Disturbed sleep: YES Previous history/Previous treatment: AUG 2024 HAD A BACK FLARE UP AND SAW A DOCTOR THAT GAVE HER MUSCLE RELAXER AND STRETCHERS THAT SEEMED TO TAKE CARE OF IT UNTIL NOW. Treatment this episode: DEXAMETHASOONE AND KENALOG INJECTIONS 03/03/25 WITHOUT BENEFIT. MUSCLE RELAXERS CURRENTLY - NOT SURE IF HELPING. TYLONOL ARTHRITIS AND ALEVE. MELOXICAM Coughing/sneezing/straining: NEGATIVE FOR INCREASED PAIN. Gait: I CAN'T STRAIGHTEN UP. Bowel or Bladder Dysfunction: NO Accidents: NO Unexplained weight loss: NO Imagin03/09/25 LUMBAR MRI: DEGENERATIVE CHANGES GREATEST AT L3-L4 WITH GRADE 1 ANTEROLISTHESIS CONTRIBUTES TO MODERATE CENTRAL CANAL STENOSIS. PMH/Recent major surgery: NELY KNEE SCOPES FOR MENISCUS, R THR 2013 Objective Objective: Sitting/Standing Posture: INCREASED TRUNK FLEXION. NO RELEVANT LATERAL LUMBAR SHIFT. Active Correction of posture: PATIENT ONLY ABLE TO PARTIALLY CORRECT AND ATTEMPTS INCREASE C/O PAIN. Other Observations: THIS PATIENT AMBULATES INDEP'LY INTO PT WITH DECREASED CADANCE, DECREASED WEIGHTBEARING TIME R LE AND INCREASED TRUNK FLEXION. NO LOB. PATIENT IS ABLE TO TRANSFER INDEP'LY FROM SIT TO STAND WITHOUT UE ASSIST. Sensory deficit: NELY LE LIGHT TOUCH SENSATION IS GROSSLY INTACT WITH HYPERSENSATIVITY OF R LATERAL PROXIMAL AND ANTERIOR THIGH COMPARED TO L. ROM deficit: NELY LE HIP FLEXOR, HS TIGHNESS. MILD NELY HIP IR/ER TIGHTNESS BUT SIGNIFICANT C/O INCREASED HIP OR GROIN PAIN WITH HIP ROTATION TESTING. Motor deficit: R HIP 4-/5, KNEE 4/5, ANKLE 5/5. L HIP 4/5, KNEE 5/5, ANKLE 5/5. Reflexes: NELY QUADS 0, NELY ACHILLES 2+ Dural Signs: NEGATIVE NELY LE'S. Lumbar mvmt loss: flex - MIN - INCREASES R LOW BACK, HIP AND GROIN - NW ext - ZAINA - INCREASES R LOW BACK, HIP AND GROIN - W R SG - ZAINA - INCREASES R LOW BACK, HIP AND GROIN - W L SG - MOD - P L LOW BACK AND DECREASES R LOW BACK, HIP AND GROIIN - NB Core strength: POOR Palpation: R LATERAL HIP PAIN IN GREATER TROCH REGION. NO ACUTE LUMBAR SPINE OR NELY LUMBAR PARASPINAL TENDERNESS OR GLUT TENDERNESS WITH PALPATION TODAY. Balance/Special Test Scores Oswestry Low Back Score: 21 Goals Goal 1:: DECREASE C/O LBP AND R LE SX'S BY AT LEAST 75% TO EASE ADL'S. Goal Time Frame: 4-6 Weeks Goal 2:: IMPROVE PERSONAL CARE, LIFTING, WALKING, SITTING, STANDING, SLEEP, SOCIAL LIFE, TRAVEL, WORK AND HOMEMAKING FUNCTION WITH AT LEAST 10 POINT IMPROVEMENT IN LUMBAR OSWESTRY SCORE. Goal Time Frame: 4-6 Weeks Goal 3:: INSTRUCT IN PROPHYLAXIS. Goal Time Frame: 4-6 Weeks Rehabilitation Potential Physical Therapy Diagnosis: CORE AND LE WEAKNESS AND STIFFNESS WITH GAIT DIFFICULTY. Rehabilitation Potential: Good Anticipated Interventions Patient/Client Instruction: Educate patient on: Condition, Plan of Care and Risk Factors For the Purpose of:: To improve self management Therapeutic Exercise to Include: Strength training, Body mechanics, Postural training, Flexibilty training, Neuromotor development, In an aquatic setting and Dynamic Lumbar Stabilization For the Purpose of:: To decrease pain, To increase ROM, To improve muscle performance and motor function, To improve ability to perform ADL's, To increase tolerance to activity/condition/position, To improve ability of physical actions for home/community/work/leisure, To improve gait and locomotor functions, To increase flexibility/ROM and To improve self management Text: Thank you for the opportunity to evaluate your patient. For Medicare and Medicare HMO plans, please review the plan of care and approve it. It will need to be FAXED BACK to us at [phone] for Medicare purposes. For Medicare only, by signing this I certify the plan of care. Please let me know if there are questions or concerns regarding this plan of care. Physician Signature: Date:
--- NOTE | 2025-04-17 14:24 | HP.PTREVAL_ITS ---
Re-Evaluation Intro: Dr. Salinas Vásquez MD, It has been my pleasure to treat LENA STOUT over the last 10 visits for SPINAL STENOSIS AT L4-5. Please see the progress note below for an update on the physical therapy plan of care! Subjective Subjective: PATIENT REPORTS SHE IS ABLE TO SLEEP IN THE BED NOW. STATES THERE IS VERY LITTLE BURNING IN THE GROIN AREA NOW AND THERE IS SIGNIFICANT IMPROVEMENT IN HER BACK PAIN. SHE REPORTS THE HOME EX'S REALLY SEEM TO BE HEL PING. SHE REPORTS THE WATER EX'S HELPED TOO. REPORTS SHE IS CONSIDERING CONSULTING DR. SALEH ABOUT HER HIP PAIN AND A CHIROPRACTOR TO STRAIGHTEN HER BACK OUT. IT'S STILL THERE AND THERE ARE STILL THINGS THAT AGGREVATE IT. PATIENT REPORTS STANDING AND WALKING STILL INCREASE HER PAIN. PATIENT REPORTS SHE IS PLANNING TO GO OUT OF TOWN THE LAST WEEK OF APRIL. Objective Objective/Function: PATIENT WAS SEEN TODAY FOR RE-ASSESSMENT OF PROGRESS TOWARD THE SET PT GOALS AND THE NEED FOR FURTHER PHYSICAL THERAPY VS READINESS FOR DISCHARGE. THIS PATIENT IS MAKING GOOD PROGRESS WITH PT AND IS A GOOD CANDIDATE TO CONTINUE PT BASED ON PROGRESS MADE AND ROOM FOR FURTHER IMPROVEMENT. PATIENT IS AGREEABLE. UPON EXAM TODAY: Sensory deficit: NELY LE LIGHT TOUCH SENSATION IS GROSSLY INTACT AND SYMMETRICAL. ROM deficit: NELY LE HIP FLEXOR, HS TIGHNESS. MILD NELY HIP IR/ER TIGHTNESS AND NO C/O INCREASED HIP OR GROIN PAIN WITH HIP ROTATION TESTING NELY TODAY. Motor deficit: R HIP 4/5, KNEE 5/5, ANKLE 5/5. L HIP 5/5, KNEE 5/5, ANKLE 5/5. Dural Signs: NEGATIVE NELY LE'S. Lumbar mvmt loss: flex - MIN - INCREASES R LOW BACK AND GROIN - NW ext - ZAINA - NE R SG - ZAINA - INCREASES R LOW BACK - NE L SG - MOD - P L LOW BACK - NW Core strength: POOR Plan Plan Plan: CONTINUE 2X'S A WK X 3 WKS: AQUATIC THERAPY FOR PAIN RELIEF, POSTURE CORRECTION/STRENGTHENING, INSTRUCTION IN APPROPRIATE BODY MECHANICS AND ACTIVITY MODIFICATIONS. DLS STARTING WITH A N EUTRAL SPINE PROGRESSING ROM TOLERATED. NELY LE ROM, STRETCHING AND STRENGTHENING. HEP INSTRUCTION. Balance/Gait/Functional tests Balance/Special Test Scores Oswestry Low Back Score: 13 Goals Goals Goal 1:: DECREASE C/O LBP AND R LE SX'S BY AT LEAST 75% TO EASE ADL'S. Goal Time Frame: 4-6 Weeks Goal Progress: Progressing Goal 2:: IMPROVE PERSONAL CARE, LIFTING, WALKING, SITTING, STANDING, SLEEP, SOCIAL LIFE, TRAVEL, WORK AND HOMEMAKING FUNCTION WITH AT LEAST 10 POINT IMPROVEMENT IN LUMBAR OSWESTRY SCORE. Goal Time Frame: 4-6 Weeks Goal Progress: Progressing Goal 3:: INSTRUCT IN PROPHYLAXIS. Goal Time Frame: 4-6 Weeks Goal Progress: Progressing Anticipated Interventions Anticipated Interventions Patient/Client Instruction: Educate patient on: Condition, Plan of Care and Risk Factors For the Purpose of:: To improve self management Therapeutic Exercise to Include: Strength training, Body mechanics, Postural training, Flexibilty training, Neuromotor development, In an aquatic setting and Dynamic Lumbar Stabilization For the Purpose of:: To decrease pain, To increase ROM, To improve muscle pe rformance and motor function, To improve ability to perform ADL's, To increase tolerance to activity/condition/position, To improve ability of physical actions for home/community/work/leisure, To improve gait and locomotor functions, To increase flexibility/ROM and To improve self management Re-Evaluation Ending Re-evaluation ending: Please do not hesitate to contact me at [phone] by phone or if you have questions or concerns regarding this new plan of care! Sincerely, Jyoti Doyle PT, Cert MDT
--- NOTE | 2025-05-08 08:41 | HP.PTDCSUM ---
Discharge Summary D/C summary: It has been my pleasure to treat LENA STOUT referred by Dr. Salinas Vásquez MD, with the diagnosis of SPINAL STENOSIS AT L4-5 for a total of 16 visit(s). Discharge Date: 05/08/25 Please see the following information for a summary of their discharge status. Subjective Subjective: PATIENT STATES DOING MORE POOL THERAPY HELPED. SHE REPORTS SHE DOESN'T HAVE PAIN IN THE GROIN ANYMORE AND EVERYTHING WITH HER HIP SEEMS GOOD NOW. PATIENT REPORTS SHE STILL GETS SOME LOW BACK PAIN WITH STANDING AND WALKING BUT SHE THINKS SHE WILL ALWAYS HAVE SOME OF THAT. SHE REPORTS 85 TO 90% IMPROVEMENT. Pain LB: Pain Intensity (Out of 10): 1 GROIN: Pain Intensity (Out of 10): 0 R hip: Pain Intensity (Out of 10): 0 Overall Improvement % Improvement: 85 Objective Objective/Function: PATIENT WAS SEEN TODAY FOR RE-ASSESSMENT OF PROGRESS TOWARD THE SET PT GOALS AND THE NEED FOR FURTHER PHYSICAL THERAPY VS READINESS FOR DISCHARGE. THIS PATIENT HAS RESPONDED REALLY WALL TO AQUATIC THERAPY. SHE IS INDEP WITH BOTH POOL AND HOME EX PROGRAMS NOW. SHE IS APPROPRIATE FOR AND AGREEABLE TO DISCHARGE. UPON EXAM: Sensory deficit: NELY LE LIGHT TOUCH SENSATION IS GROSSLY INTACT AND SYMMETRICAL. ROM deficit: NELY LE HIP FLEXOR, HS TIGHNESS. MILD NELY HIP IR/ER TIGHTNESS AND NO C/O INCREASED HIP OR GROIN PAIN WITH HIP ROTATION TESTING NELY TODAY. Motor deficit: NELY LE STRENGTH IS GROSSLY 5/5 WITH MMT'ING. Dural Signs: NEGATIVE NELY LE'S. Lumbar mvmt loss: flex - NIL ext - MOD R SG - MOD L SG - MOD PATIENT DENIES INCREASED PAIN WITH LUMBAR ROM TESTING ALL PLANES TODAY. Core strength: FAIR Goals Goal 1:: DECREASE C/O LBP AND R LE SX'S BY AT LEAST 75% TO EASE ADL'S. Goal Progress: Goal Met Goal 2:: IMPROVE PERSONAL CARE, LIFTING, WALKING, SITTING, STANDING, SLEEP, SOCIAL LIFE, TRAVEL, WORK AND HOMEMAKING FUNCTION WITH AT LEAST 10 POINT IMPROVEMENT IN LUMBAR OSWESTRY SCORE. Goal Progress: Progressing Goal 3:: INSTRUCT IN PROPHYLAXIS. Goal Progress: Goal Met Plan Plan: D/C D/C Information d/c sentence: If there are questions or concerns regarding this patient's physical therapy, please feel free to call me at [phone]. Thank you for the referral of this patient. Sincerely, Jyoti Doyle, PT, Cert MDT Balance/Gait/Functional tests Balance/Special Test Scores Oswestry Low Back Score: 12 Improvement % Improvement: 85
== END 2025-05-08 19:00 | disposition home or self-care (01) ==
LOC: PT 08:00
PROVIDERS: PCP Family Medicine; Referring Provider Family Medicine; Visit Provider Family Medicine
DX: M48.061 Spinal stenosis, lumbar region without neurogenic claudication (principal)
CPT/HCPCS: 97113; 97162; 97530